=== PATIENT | male | born 1975 | race Caucasian/White ===

== ENCOUNTER 2021-06-05 00:47 | Inpatient (IN) | payer OTHER ==
[2021-06-05] MEDS ORDERED: PROTONIX 40 MG IV IV ONE ×2 (01:22→02:10)
[2021-06-05] MEDS ORDERED: MORPHINE SULFATE 4 MG INJ IV ONE ×2 (01:22→05:42)
[2021-06-05] MEDS ORDERED: Sodium Chloride 0.9% 1000 ML 1,000 ML IV STA ×2 (01:22→01:53)
[2021-06-05] MEDS ORDERED: Zofran 4 MG/2 ML VIAL IV ONE (01:22)
[2021-06-05 01:30] LABS: Hematocrit 53.9 % (42-50); Hemoglobin 17.1 gm/dl (12.5-18.0); Mean Cell Volume 94.4 fl (78-100); Mean Corpuscular Hemoglobin 29.9 pg (26-32); Mean Corpuscular Hgb Concent. 31.7 g/dl (32-36); Mean Platelet Volume 11.1 fl (7.5-11.0); Platelet Count 424 K/mm3 (150-450); Red Blood Count 5.71 M/mm3 (4.1-5.6); Red Cell Distribution Width 12.8 % (11.5-14.0); White Blood Count 16.7 K/mm3 (4.0-10.5)
[2021-06-05 01:48] LABS: ARTERIAL BLOOD GAS pH 6.98 (7.35-7.45)
[2021-06-05 01:49] LABS: ARTERIAL BLD GAS O2 SATURATION 99.5 % (95-100); ARTERIAL BLOOD GAS BASE EXCESS -27.2 (-2.0-2.0); ARTERIAL BLOOD GAS PCO2 11 mmHg (35-45); ARTERIAL BLOOD GAS PO2 131 mmHg (75-100); HCO3- 2.6 (22-28)
[2021-06-05 01:50] LABS: A-aADO2 5; ABG HEMOGLOBIN 17.3; ABG POTASSIUM 5.1 (3.5-5.1); ARTERIAL BLOOD GAS FIO2 21 %; HGB O2 SAT 97.6 g/dF (94-100)
[2021-06-05 01:51] LABS: ABG SITE RIGHT BRACHIAL; CARBOXYHEMOGLOBIN 0.9 % THgb (0.0-6.9)
[2021-06-05] MEDS ORDERED: Sodium Bicarbonate 50 MEQ/50 ML VIAL IV STA (01:53)
--- NOTE | 2021-06-05 01:58 | ERPHSYRPT ---
- History of Present Illness Time Seen by Provider: 06/05/21 00:49 Historian: patient Exam Limitations: no limitations Physician History: 46 years old male with history of diabetes mellitus poorly controlled recently started on Victoza has not taken anything for almost a week presented in the ER with chief complaint of 2 days history of not feeling well with generalized weakness fatigue tiredness, malaise and nausea and since yesterday having multiple episodes of nonprojectile, nonbilious vomiting with no emesis. He is not able to hold much down drinking a lot of water to keep himself well- hydrated. Because of repeated vomiting having pain in the left flank area. Decreased urine output and dark-colored urine reported. No fever or chills reported. Did not have full effect does have history of DKA in the past. Timing/Duration: day(s) (2), constant, gradual onset, worse Activities at Onset: rest Quality: aching Abdominal Pain Onset Location: epigastric, periumbilical, flank Pain Radiation: no radiation Severity of Pain-Max: moderate Severity of Pain-Current: moderate Modifying Factors: Worsens With: vomiting Associated Symptoms: back, heartburn, nausea, vomiting, weakness, No diarrhea Previous symptoms: no prior history Allergies/Adverse Reactions: No Known Drug Allergies Allergy (Unverified 06/05/21 01:23) - Review of Systems Constitutional: Fatigue, Weakness Eyes: No Symptoms Ears, Nose, & Throat: No Symptoms Respiratory: Dyspnea Cardiac: No Symptoms Abdominal/Gastrointestinal: Abdominal Pain, Nausea, Vomiting Genitourinary Symptoms: No Symptoms Musculoskeletal: Back Pain, Myalgias Skin: No Symptoms Neurological: No Symptoms Psychological: Anxiety Endocrine: No Symptoms Hematologic/Lymphatic: No Symptoms Immunological/Allergic: No Symptoms - Nursing Vital Signs Nursing Vital Signs: Initial Vital Signs Temperature 97.7 F 06/05/21 01:24 Pulse Rate 105 H 06/05/21 01:24 Respiratory Rate 24 06/05/21 01:24 Blood Pressure 123/108 06/05/21 01:24 O2 Sat by Pulse Oximetry 97 06/05/21 01:24 Pain Scale Pain Intensity 5 - Physical Exam General Appearance: mild distress, alert, anxiety Eye Exam: PERRL/EOMI, eyes nml inspection Ears, Nose, Throat Exam: TMs normal, pharyngeal erythema Neck Exam: normal inspection, supple, full range of motion Respiratory Exam: normal breath sounds, lungs clear Cardiovascular Exam: normal heart sounds, tachycardia Gastrointestinal/Abdomen Exam: soft, tenderness (Decreased upper abdomen/flank especially right), guarding, No normal bowel sounds Back Exam: normal inspection, normal range of motion Extremity Exam: normal inspection, normal range of motion, pelvis stable Neurologic Exam: alert, oriented x 3, cooperative Skin Exam: normal color SpO2 Interpretation: normal SpO2: 98 O2 Delivery: Room Air - Course EKG Interpreted by Me: RATE ([id number]), Sinus Tach, NORMAL AXIS, NORMAL INTERVALS, NORMAL QRS Ordered Tests: Medication Summary Discontinued Medications Generic Name Dose Route Start Last Admin Trade Name Freq PRN Reason Stop Dose Admin Acetaminophen 650 mg 06/05/21 06:13 06/07/21 00:17 Tylenol 325 Mg PO 07/05/21 06:12 650 mg Q4H PRN PRN Administration PAIN AND/OR FEVER Hydromorphone HCl 1 mg 06/05/21 08:29 06/05/21 20:08 Hydromorphone 1 Mg/Ml Injection IV 06/10/21 08:28 1 mg Q4H PRN PRN Administration PAIN Sodium Chloride 1,000 mls @ 999 mls/hr 06/05/21 01:22 06/05/21 05:01 Sodium Chloride 0.9% 1000 Ml IV 06/05/21 02:22 Infused .Q1H1M STA Infusion Sodium Chloride 1,000 mls @ 999 mls/hr 06/05/21 01:53 06/05/21 05:00 Sodium Chloride 0.9% 1000 Ml IV 06/05/21 02:53 Infused .Q1H1M STA Infusion Sodium Chloride Confirm 06/05/21 02:10 Sodium Chloride 0.9% 1000 Ml Administered 06/05/21 02:11 Dose 2,000 mls @ ud .ROUTE .STK-MED ONE Insulin Human Regular 100 unit 100 mls @ 9.94 mls/hr 06/05/21 02:47 06/05/21 04:15 / Sodium Chloride IV 07/05/21 02:46 0.07 unit/kg/hr .Q10H4M PRN 7 mls/hr DKA/HYPERGLYCEMIA Administration Protocol 0.1 UNIT/KG/HR Piperacillin Sod/Tazobactam 100 mls @ 200 mls/hr 06/05/21 03:06 06/05/21 03: 37 Sod 3.375 gm/ Sodium Chloride IV 06/05/21 03:35 200 mls/hr STAT ONE Administration Sodium Chloride Confirm 06/05/21 03:33 Sodium Chloride 100ml Mini-Bag Plus Administered 06/05/21 03:34 Dose 100 mls @ ud IV .STK-MED ONE Sodium Chloride Confirm 06/05/21 04:08 Sodium Chloride 0.9% 100 Ml Bag Administered 06/05/21 04:09 Dose 100 mls @ ud .ROUTE .STK-MED ONE Sodium Chloride Confirm 06/05/21 06:13 Sodium Chloride 0.9% 1000 Ml Administered 06/05/21 06:14 Dose 1,000 mls @ ud .ROUTE .STK-MED ONE Piperacillin Sod/Tazobactam 100 mls @ 200 mls/hr 06/05/21 12:00 06/07/21 06:09 Sod 3.375 gm/ Sodium Chloride IV 06/09/21 11:59 200 mls/hr Q6HT MANISHA Administration Insulin Human Regular 100 unit 100 mls @ 9.94 mls/hr 06/05/21 12:30 06/06/21 19:35 / Sodium Chloride IV 07/05/21 02:46 Not Given .Q10H4M MANISHA Protocol 0.1 UNIT/KG/HR Sodium Chloride 1,000 mls @ 150 mls/hr 06/05/21 06:45 06/05/21 07:01 Sodium Chloride 0.9% 1000 Ml IV 07/05/21 06:44 150 mls/hr .Q6H40M MANISHA Administration Sodium Chloride 1,000 mls @ 999 mls/hr 06/05/21 08:30 06/06/21 19:49 Sodium Chloride 0.9% 1000 Ml IV 07/05/21 08:29 Not Given .Q1H1M MANISHA Dextrose 1,000 mls @ 150 mls/hr 06/05/21 12:30 06/06/21 00:18 Dextrose 5%/Water Iv Soln. 1000 Ml IV 07/05/21 12:29 150 mls/hr .Q6H40M MANISHA Administration Potassium Chloride 20 meq in 100 mls @ 50 mls/hr 06/06/21 06:00 06/06/21 08:57 Potassium Chloride 20 Meq In Water 100ml IV 06/06/21 09:59 50 mls/hr Q2H MANISHA Administration Sodium Chloride 1,000 mls @ 100 mls/hr 06/06/21 06:00 06/06/21 06:06 Sodium Chloride 0.9% 1000 Ml IV 07/06/21 05:59 150 mls/hr .Q10H MANISHA Administration Potassium Chloride/Sodium Chloride 1,000 mls @ 100 mls/hr 06/06/21 10:00 06/07/21 06:07 Sodium Chloride 0.9% W/ 20 Meq Kcl/Liter IV 07/06/21 09:59 100 mls/hr .Q10H MANISHA Administration Insulin Glargine 30 unit 06/06/21 10:00 06/07/21 09:27 Lantus Insulin SQ 07/06/21 09:59 30 unit QAM MANISHA Administration Insulin Human Lispro 10 unit 06/06/21 11:30 06/07/21 08:07 Humalog SQ 07/06/21 11:29 10 unit AC MANISHA Administration Insulin Human Lispro 0 unit 06/06/21 09:57 06/07/21 08:07 Humalog SQ 07/06/21 09:56 3 unit UD PRN Administration HYPERGLYCEMIA Insulin Human Regular Confirm 06/05/21 04:08 Humulin R Administered 06/05/21 04:09 Dose 105 unit .ROUTE .STK-MED ONE Insulin Human Regular 5 unit 06/05/21 04:17 06/05/21 04:18 Humulin R IV 06/05/21 04:18 5 unit STAT ONE Administration Morphine Sulfate 4 mg 06/05/21 01:22 06/05/21 02:13 Morphine Sulfate 4 Mg Inj IV 06/05/21 01:23 4 mg STAT ONE Administration Morphine Sulfate Confirm 06/05/21 02:10 Morphine Sulfate 4 Mg Inj Administered 06/05/21 02:11 Dose 4 mg .ROUTE .STK-MED ONE Morphine Sulfate Confirm 06/05/21 04:23 Morphine Sulfate 2 Mg Inj Administered 06/05/21 04:24 Dose 2 mg .ROUTE .STK-MED ONE Morphine Sulfate 1 mg 06/05/21 04:39 06/05/21 05:45 Morphine Sulfate 2 Mg Inj IV 06/05/21 04:40 Not Given STAT ONE Morphine Sulfate 1 mg 06/05/21 05:42 06/05/21 05:45 Morphine Sulfate 4 Mg Inj IV 06/05/21 05:43 Not Given STAT ONE Morphine Sulfate 2 mg 06/05/21 05:45 06/05/21 04:25 Morphine Sulfate 2 Mg Inj IV 06/05/21 05:46 2 mg STAT ONE Administration Morphine Sulfate 2 mg 06/05/21 06:13 Morphine Sulfate 2 Mg Inj IV 06/10/21 06:12 Q4H PRN PRN PAIN Ondansetron HCl 4 mg 06/05/21 01:22 06/05/21 02:12 Zofran 4 Mg/2 Ml Vial IV 06/05/21 01:23 4 mg STAT ONE Administration Ondansetron HCl Confirm 06/05/21 02:10 Zofran 4 Mg/2 Ml Vial Administered 06/05/21 02:11 Dose 4 mg .ROUTE .STK-MED ONE Ondansetron HCl 4 mg 06/05/21 06:13 Zofran 4 Mg/2 Ml Vial IV 07/05/21 06:12 Q6H PRN PRN NAUSEA/VOMITING Pantoprazole Sodium 40 mg 06/05/21 01:22 06/05/21 02:12 Protonix 40 Mg Iv IV 06/05/21 01:23 40 mg STAT ONE Administration Pantoprazole Sodium Confirm 06/05/21 02:10 Protonix 40 Mg Iv Administered 06/05/21 02:11 Dose 40 mg IV .STK-MED ONE Pantoprazole Sodium 40 mg 06/05/21 22:00 06/06/21 21:53 Protonix 40 Mg Iv IV 07/05/21 21:59 40 mg Q24H22 MANISHA Administration Piperacillin Sod/Tazobactam Sod Confirm 06/05/21 03:33 Zosyn 3.375 Gm Vial Administered 06/05/21 03:34 Dose 3.375 gm IV .STK-MED ONE Potassium Bicarbonate 50 meq 06/06/21 05:57 06/06/21 06:06 K-Lyte 25 Meq PO 06/06/21 05:58 50 meq STAT ONE Administration Sodium Bicarbonate 50 meq 06/05/21 01:53 06/05/21 02:15 Sodium Bicarbonate 50 Meq/50 Ml Vial IV 06/05/21 01:54 50 meq ONCE STA Administration Sodium Bicarbonate Confirm 06/05/21 02:10 Sodium Bicarbonate 50 Meq/50 Ml Abboject Administered 06/05/21 02:11 Dose 50 meq IV .STK-[employer] ONE Sodium Bicarbonate Confirm 06/05/21 02:14 Sodium Bicarbonate 50 Meq/50 Ml Vial Administered 06/05/21 02:15 Dose 50 meq .ROUTE .STK-MED ONE Lab/Rad Data: Laboratory Result Diagrams 06/05/21 01:26 06/05/21 01:26 Laboratory Results 06/05/21 06/05/21 06/05/21 Range/Units 05:49 05:00 04:24 WBC (4.0-10.5) K/mm3 RBC (4.1-5.6) M/mm3 Hgb (12.5-18.0) gm/dl Hct (42-50) % MCV (78-100) fl MCH (26-32) pg MCHC (32-36) g/dl RDW (11.5-14.0) % Plt Count (150-450) K/mm3 MPV (7.5-11.0) fl Segmented Neutrophils (36.-66.) % Band Neutrophils (0.0-2.0) % Lymphocytes (Manual) (24-44) % Monocytes (Manual) (0.0-12.0) % Platelet Estimate (NORMAL) RBC Morphology Puncture Site pCO2 (35-45) mmHg pO2 (75-100) mmHg Base Excess (-2.0-2.0) O2 Saturation (94-100) g/dF ABG pH (7.35-7.45) ABG HCO3 (22-28) ABG O2 Sat (Measured) (95-100) % Chip Test A-a Gradient a/A Ratio Hemoglobin Carboxyhemoglobin (0.0-6.9) % THgb Methemoglobin (1.4-1.5) % POC O2 Flow Rate % Sodium (137-145) mmol/L Potassium (3.5-5.1) mmol/L Chloride (98-107) mmol/L Carbon Dioxide (22-30) mmol/L BUN (9-20) mg/dL Creatinine (0.66-1.25) mg/dL Estimated GFR ML/MIN Glucose (74-106) mg/dL POC Glucometer (74 to 106) mg/dL Hemoglobin A1c 12.22 H (4.5-6.0) % Lactic Acid (0.4-2.0) Calcium (8.4-10.2) mg/dL Magnesium (1.6-2.3) mg/dL Total Bilirubin (0.2-1.3) mg/dL AST (17-59) U/L ALT (0-50) U/L Alkaline Phosphatase (38-126) U/L Troponin I (0.000-0.034) ng/mL NT-Pro-B Natriuret Pep 43.4 (0-450) pg/mL Serum Total Protein (6.3-8.2) g/dL Albumin (3.5-5.0) g/dL Amylase (30-110) U/L Lipase (23-300) U/L Urine Color (YELLOW) Urine Appearance (CLEAR) Urine pH (5-6) Ur Specific [place] (1.005-1.025) Urine Protein (Negative) Urine Ketones (NEGATIVE) Urine Blood (0-5) Barry/ul Urine Nitrite (NEGATIVE) Urine Bilirubin (NEGATIVE) Urine Urobilinogen (0-1) mg/dL Ur Leukocyte Esterase (NEGATIVE) Urine WBC (Auto) (0-5) /HPF Urine RBC (Auto) (0-2) /HPF U Epithel Cells (Auto) (FEW) /HPF Urine Bacteria (Auto) (NEGATIVE) /HPF Urine Mucus (Auto) (NEGATIVE) /HPF Urine Culture Reflexed (NO) Urine Glucose (NEGATIVE) mg/dL SARS-CoV-2 (PCR) NEGATIVE (NEGATIVE) 06/05/21 06/05/21 06/05/21 Range/Units 04:15 03:47 03:42 WBC (4.0-10.5) K/mm3 RBC (4.1-5.6) M/mm3 Hgb (12.5-18.0) gm/dl Hct (42-50) % MCV (78-100) fl MCH (26-32) pg MCHC (32-36) g/dl RDW (11.5-14.0) % Plt Count (150-450) K/mm3 MPV (7.5-11.0) fl Segmented Neutrophils (36.-66.) % Band Neutrophils (0.0-2.0) % Lymphocytes (Manual) (24-44) % Monocytes (Manual) (0.0-12.0) % Platelet Estimate (NORMAL) RBC Morphology Puncture Site pCO2 (35-45) mmHg pO2 (75-100) mmHg Base Excess (-2.0-2.0) O2 Saturation (94-100) g/dF ABG pH (7.35-7.45) ABG HCO3 (22-28) ABG O2 Sat (Measured) (95-100) % Chip Test A-a Gradient a/A Ratio Hemoglobin Carboxyhemoglobin (0.0-6.9) % THgb Methemoglobin (1.4-1.5) % POC O2 Flow Rate % Sodium (137-145) mmol/L Potassium (3.5-5.1) mmol/L Chloride (98-107) mmol/L Carbon Dioxide (22-30) mmol/L BUN (9-20) mg/dL Creatinine (0.66-1.25) mg/dL Estimated GFR ML/MIN Glucose (74-106) mg/dL POC Glucometer 439 H (74 to 106) mg/dL Hemoglobin A1c (4.5-6.0) % Lactic Acid 3.6 H (0.4-2.0) Calcium (8.4-10.2) mg/dL Magnesium (1.6-2.3) mg/dL Total Bilirubin (0.2-1.3) mg/dL AST (17-59) U/L ALT (0-50) U/L Alkaline Phosphatase (38-126) U/L Troponin I < 0.012 (0.000-0.034) ng/mL NT-Pro-B Natriuret Pep (0-450) pg/mL Serum Total Protein (6.3-8.2) g/dL Albumin (3.5-5.0) g/dL Amylase (30-110) U/L Lipase (23-300) U/L Urine Color (YELLOW) Urine Appearance (CLEAR) Urine pH (5-6) Ur Specific [place] (1.005-1.025) Urine Protein (Negative) Urine Ketones (NEGATIVE) Urine Blood (0-5) Barry/ul Urine Nitrite (NEGATIVE) Urine Bilirubin (NEGATIVE) Urine Urobilinogen (0-1) mg/dL Ur Leukocyte Esterase (NEGATIVE) Urine WBC (Auto) (0-5) /HPF Urine RBC (Auto) (0-2) /HPF U Epithel Cells (Auto) (FEW) /HPF Urine Bacteria (Auto) (NEGATIVE) /HPF Urine Mucus (Auto) (NEGATIVE) /HPF Urine Culture Reflexed (NO) Urine Glucose (NEGATIVE) mg/dL SARS-CoV-2 (PCR) (NEGATIVE) 06/05/21 06/05/21 06/05/21 Range/Units 02:47 02:45 01:40 WBC (4.0-10.5) K/mm3 RBC (4.1-5.6) M/mm3 Hgb (12.5-18.0) gm/dl Hct (42-50) % MCV (78-100) fl MCH (26-32) pg MCHC (32-36) g/dl RDW (11.5-14.0) % Plt Count (150-450) K/mm3 MPV (7.5-11.0) fl Segmented Neutrophils (36.-66.) % Band Neutrophils (0.0-2.0) % Lymphocytes (Manual) (24-44) % Monocytes (Manual) (0.0-12.0) % Platelet Estimate (NORMAL) RBC Morphology Puncture Site RIGHT BRACHIAL pCO2 11 L* (35-45) mmHg pO2 131 H* (75-100) mmHg Base Excess -27.2 L (-2.0-2.0) O2 Saturation 97.6 (94-100) g/dF ABG pH 6.98 L* (7.35-7.45) ABG HCO3 2.6 L* (22-28) ABG O2 Sat (Measured) 99.5 (95-100) % Chip Test NOT APPLICABLE A-a Gradient 5 a/A Ratio 0.96 Hemoglobin 17.3 Carboxyhemoglobin 0.9 (0.0-6.9) % THgb Methemoglobin 1.0 L (1.4-1.5) % POC O2 Flow Rate 21 % Sodium (137-145) mmol/L Potassium 5.1 (3.5-5.1) mmol/L Chloride (98-107) mmol/L Carbon Dioxide (22-30) mmol/L BUN (9-20) mg/dL Creatinine (0.66-1.25) mg/dL Estimated GFR ML/MIN Glucose (74-106) mg/dL POC Glucometer (74 to 106) mg/dL Hemoglobin A1c (4.5-6.0) % Lactic Acid (0.4-2.0) Calcium (8.4-10.2) mg/dL Magnesium 2.4 H (1.6-2.3) mg/dL Total Bilirubin (0.2-1.3) mg/dL AST (17-59) U/L ALT (0-50) U/L Alkaline Phosphatase (38-126) U/L Troponin I (0.000-0.034) ng/mL NT-Pro-B Natriuret Pep (0-450) pg/mL Serum Total Protein (6.3-8.2) g/dL Albumin (3.5-5.0) g/dL Amylase (30-110) U/L Lipase (23-300) U/L Urine Color YELLOW (YELLOW) Urine Appearance CLEAR (CLEAR) Urine pH 5.0 (5-6) Ur Specific [place] 1.021 (1.005-1.025) Urine Protein 100 (Negative) Urine Ketones MODERATE (NEGATIVE) Urine Blood SMALL (0-5) Barry/ul Urine Nitrite NEGATIVE (NEGATIVE) Urine Bilirubin NEGATIVE (NEGATIVE) Urine Urobilinogen NEGATIVE (0-1) mg/dL Ur Leukocyte Esterase NEGATIVE (NEGATIVE) Urine WBC (Auto) NONE (0-5) /HPF Urine RBC (Auto) NONE (0-2) /HPF U Epithel Cells (Auto) NONE (FEW) /HPF Urine Bacteria (Auto) NONE (NEGATIVE) /HPF Urine Mucus (Auto) SLIGHT (NEGATIVE) /HPF Urine Culture Reflexed YES (NO) Urine Glucose >=500 (NEGATIVE) mg/dL SARS-CoV-2 (PCR) (NEGATIVE) 06/05/21 06/05/21 06/05/21 Range/Units 01:40 01:26 01:26 WBC (4.0-10.5) K/mm3 RBC (4.1-5.6) M/mm3 Hgb (12.5-18.0) gm/dl Hct (42-50) % MCV (78-100) fl MCH (26-32) pg MCHC (32-36) g/dl RDW (11.5-14.0) % Plt Count (150-450) K/mm3 MPV (7.5-11.0) fl Segmented Neutrophils (36.-66.) % Band Neutrophils (0.0-2.0) % Lymphocytes (Manual) (24-44) % Monocytes (Manual) (0.0-12.0) % Platelet Estimate (NORMAL) RBC Morphology Puncture Site pCO2 (35-45) mmHg pO2 (75-100) mmHg Base Excess (-2.0-2.0) O2 Saturation (94-100) g/dF ABG pH (7.35-7.45) ABG HCO3 (22-28) ABG O2 Sat (Measured) (95-100) % Chip Test A-a Gradient a/A Ratio Hemoglobin Carboxyhemoglobin (0.0-6.9) % THgb Methemoglobin (1.4-1.5) % POC O2 Flow Rate % Sodium 138 (137-145) mmol/L Potassium 5.6 H (3.5-5.1) mmol/L Chloride 102 (98-107) mmol/L Carbon Dioxide < 5 L* (22-30) mmol/L BUN 21 H (9-20) mg/dL Creatinine 1.45 H (0.66-1.25) mg/dL Estimated GFR 55.4 ML/MIN Glucose 499 H (74-106) mg/dL POC Glucometer (74 to 106) mg/dL Hemoglobin A1c (4.5-6.0) % Lactic Acid 2.5 H (0.4-2.0) Calcium 10.5 H (8.4-10.2) mg/dL Magnesium (1.6-2.3) mg/dL Total Bilirubin 0.50 (0.2-1.3) mg/dL AST 25 (17-59) U/L ALT 20 (0-50) U/L Alkaline Phosphatase 120 (38-126) U/L Troponin I < 0.012 (0.000-0.034) ng/mL NT-Pro-B Natriuret Pep (0-450) pg/mL Serum Total Protein 9.3 H (6.3-8.2) g/dL Albumin 5.4 H (3.5-5.0) g/dL Amylase 54 (30-110) U/L Lipase 248 (23-300) U/L Urine Color (YELLOW) Urine Appearance (CLEAR) Urine pH (5-6) Ur Specific [place] (1.005-1.025) Urine Protein (Negative) Urine Ketones (NEGATIVE) Urine Blood (0-5) Barry/ul Urine Nitrite (NEGATIVE) Urine Bilirubin (NEGATIVE) Urine Urobilinogen (0-1) mg/dL Ur Leukocyte Esterase (NEGATIVE) Urine WBC (Auto) (0-5) /HPF Urine RBC (Auto) (0-2) /HPF U Epithel Cells (Auto) (FEW) /HPF Urine Bacteria (Auto) (NEGATIVE) /HPF Urine Mucus (Auto) (NEGATIVE) /HPF Urine Culture Reflexed (NO) Urine Glucose (NEGATIVE) mg/dL SARS-CoV-2 (PCR) (NEGATIVE) 06/05/21 06/05/21 Range/Units 01:26 01:22 WBC 16.7 H (4.0-10.5) K/mm3 RBC 5.71 H (4.1-5.6) M/mm3 Hgb 17.1 (12.5-18.0) gm/dl Hct 53.9 H (42-50) % MCV 94.4 (78-100) fl MCH 29.9 (26-32) pg MCHC 31.7 L (32-36) g/dl RDW 12.8 (11.5-14.0) % Plt Count 424 (150-450) K/mm3 MPV 11.1 H (7.5-11.0) fl Segmented Neutrophils 82 H (36.-66.) % Band Neutrophils 2 (0.0-2.0) % Lymphocytes (Manual) 12 L (24-44) % Monocytes (Manual) 4 (0.0-12.0) % Platelet Estimate NORMAL (NORMAL) RBC Morphology NORMAL Puncture Site pCO2 (35-45) mmHg pO2 (75-100) mmHg Base Excess (-2.0-2.0) O2 Saturation (94-100) g/dF ABG pH (7.35-7.45) ABG HCO3 (22-28) ABG O2 Sat (Measured) (95-100) % Chip Test A-a Gradient a/A Ratio Hemoglobin Carboxyhemoglobin (0.0-6.9) % THgb Methemoglobin (1.4-1.5) % POC O2 Flow Rate % Sodium (137-145) mmol/L Potassium (3.5-5.1) mmol/L Chloride (98-107) mmol/L Carbon Dioxide (22-30) mmol/L BUN (9-20) mg/dL Creatinine (0.66-1.25) mg/dL Estimated GFR ML/MIN Glucose (74-106) mg/dL POC Glucometer 423 H (74 to 106) mg/dL Hemoglobin A1c (4.5-6.0) % Lactic Acid (0.4-2.0) Calcium (8.4-10.2) mg/dL Magnesium (1.6-2.3) mg/dL Total Bilirubin (0.2-1.3) mg/dL AST (17-59) U/L ALT (0-50) U/L Alkaline Phosphatase (38-126) U/L Troponin I (0.000-0.034) ng/mL NT-Pro-B Natriuret Pep (0-450) pg/mL Serum Total Protein (6.3-8.2) g/dL Albumin (3.5-5.0) g/dL Amylase (30-110) U/L Lipase (23-300) U/L Urine Color (YELLOW) Urine Appearance (CLEAR) Urine pH (5-6) Ur Specific [place] (1.005-1.025) Urine Protein (Negative) Urine Ketones (NEGATIVE) Urine Blood (0-5) Barry/ul Urine Nitrite (NEGATIVE) Urine Bilirubin (NEGATIVE) Urine Urobilinogen (0-1) mg/dL Ur Leukocyte Esterase (NEGATIVE) Urine WBC (Auto) (0-5) /HPF Urine RBC (Auto) (0-2) /HPF U Epithel Cells (Auto) (FEW) /HPF Urine Bacteria (Auto) (NEGATIVE) /HPF Urine Mucus (Auto) (NEGATIVE) /HPF Urine Culture Reflexed (NO) Urine Glucose (NEGATIVE) mg/dL SARS-CoV-2 (PCR) (NEGATIVE) - Progress Progress: improved, re-examined Progress Note: 06/05/21 03:02 46 years old is evaluated in the ER for not feeling well with vomiting and abdominal pain. Patient is tachypneic and tachycardic. Initial blood sugar in 400s with Anion gap of 31 and bicarb less than 5. ABG showed pH of 6.9 with low bicarb and given an ampule of bicarb IV along with fluid boluses. Patient is in DKA with some KERI as well. He will be started on insulin drip and would be admitted to ICU. Discussed with : Bethany Will see patient in: hospital (full admit) Counseled pt/family regarding: lab results, diagnosis, rad results - Departure Departure Disposition: In-patient Admission Clinical Impression: KERI (acute kidney injury) DKA (diabetic ketoacidosis) Qualifiers: Diabetes mellitus type: type 2 Diabetes mellitus complication detail: without coma Qualified Code(s): E11.10 - Type 2 diabetes mellitus with ketoacidosis without coma Condition: Good Critical Care Time: Yes Critical Care Time(excluding separately billable procedures): Critical 30-74 mins
[2021-06-05] MEDS ORDERED: MORPHINE SULFATE 4 MG INJ ONE (02:10)
[2021-06-05] MEDS ORDERED: Sodium Chloride 0.9% 1000 ML 2,000 ML ONE (02:10)
[2021-06-05] MEDS ORDERED: Zofran 4 MG/2 ML VIAL ONE (02:10)
[2021-06-05] MEDS ORDERED: SODIUM BICARBONATE 50 MEQ/50 ML ABBOJECT IV ONE (02:10)
[2021-06-05] MEDS ORDERED: Sodium Bicarbonate 50 MEQ/50 ML VIAL ONE (02:14)
[2021-06-05 02:16] LABS: ALBUMIN 5.4 g/dL (3.5-5.0); ALKALINE PHOSPHATASE 120 U/L (38-126); AMYLASE 54 U/L (30-110); BLOOD UREA NITROGEN 21 mg/dL (9-20); CHLORIDE 102 mmol/L (98-107); Calcium 10.5 mg/dL (8.4-10.2); Creatinine 1 1.45 mg/dL (0.66-1.25); EST GLOMERULAR FILTRATION RATE 55.4 ML/MIN; Glucose 499 mg/dL (74-106); LIPASE 248 U/L (23-300); Potassium 5.6 mmol/L (3.5-5.1); SGOT/AST 25 U/L (17-59); SGPT/ALT 20 U/L (0-50); SODIUM 138 mmol/L (137-145); Total Protein 9.3 g/dL (6.3-8.2)
[2021-06-05 02:18] LABS: Carbon Dioxide < 5 mmol/L (22-30)
[2021-06-05 02:30] LABS: BAND 2 % (0.0-2.0); Lymphocytes 12 % (24-44); Monocyte 4 % (0.0-12.0); Neutrophils 82 % (36.-66.); Total Cells Counted 100
[2021-06-05 02:31] LABS: Platelet Estimate NORMAL (NORMAL)
[2021-06-05] MEDS ORDERED: HUMULIN R 100 UNIT in Sodium Chloride 0.9% 100 ML BAG 100 ML IV PRN (02:47)
[2021-06-05 03:04] LABS: Appearance CLEAR (CLEAR); Bilirubin NEGATIVE (NEGATIVE); Blood SMALL Ery/ul (0-5); Glucose >=500 mg/dL (NEGATIVE); Ketones MODERATE (NEGATIVE); Leukocyte Esterase NEGATIVE (NEGATIVE); Mucus SLIGHT /HPF (NEGATIVE); Nitrite NEGATIVE (NEGATIVE); Protein,Urine Dip 100 (Negative); Specific Gravity 1.021 (1.005-1.025); Urobilinogen NEGATIVE mg/dL (0-1)
[2021-06-05] MEDS ORDERED: Zosyn 3.375 GM Vial 3.375 GM in Sodium Chloride 100ML MINI-BAG PLUS 100 ML IV ONE (03:06)
[2021-06-05] MEDS ORDERED: Sodium Chloride 100ML MINI-BAG PLUS 100 ML IV ONE (03:33)
[2021-06-05] MEDS ORDERED: Zosyn 3.375 GM Vial IV ONE (03:33)
[2021-06-05] MEDS ORDERED: HUMULIN R ONE (04:08)
[2021-06-05] MEDS ORDERED: Sodium Chloride 0.9% 100 ML BAG 100 ML ONE (04:08)
[2021-06-05] MEDS ORDERED: HUMULIN R IV ONE (04:17)
[2021-06-05] MEDS ORDERED: MORPHINE SULFATE 2 MG INJ ONE (04:23)
[2021-06-05] MEDS ORDERED: MORPHINE SULFATE 2 MG INJ IV ONE ×2 (04:39→05:45)
[2021-06-05] MEDS ORDERED: Sodium Chloride 0.9% 1000 ML 1,000 ML ONE (06:13)
[2021-06-05] MEDS ORDERED: MORPHINE SULFATE 2 MG INJ IV PRN (06:13)
[2021-06-05] MEDS ORDERED: Zosyn 3.375 GM Vial 3.375 GM in Sodium Chloride 100ML MINI-BAG PLUS 100 ML IV SCH (06:13)
[2021-06-05] MEDS ORDERED: Zofran 4 MG/2 ML VIAL IV PRN (06:13)
[2021-06-05] MEDS ORDERED: Sodium Chloride 0.9% 1000 ML 1,000 ML IV SCH (06:45)
[2021-06-05 06:54] LABS: ANION GAP 33.6 MEQ/L (5-15); BLOOD UREA NITROGEN 21 mg/dL (9-20); CHLORIDE 109 mmol/L (98-107); Calcium 9.2 mg/dL (8.4-10.2); Creatinine 1 1.28 mg/dL (0.66-1.25); EST GLOMERULAR FILTRATION RATE > 60.0 ML/MIN; Glucose 347 mg/dL (74-106); Potassium 4.4 mmol/L (3.5-5.1); SODIUM 143 mmol/L (137-145)
[2021-06-05] MEDS: HUMULIN R 100 UNIT in Sodium Chloride 0.9% 100 ML BAG 100 ML IV SCH ×2 (07:01→22:03)
[2021-06-05 07:39] LABS: Carbon Dioxide < 5 mmol/L (22-30)
--- NOTE | 2021-06-05 08:33 | PCM.HP ---
History of Present Illness - Chief Complaint Chief Complaint: DKA History of Present Illness: is a 46 year old male who presented to the ER with severe pain in upper stomach radiating to his back, he has profuse nausea and vomiting and high blood sugar. type 2 diabetes diagnosed 5-6 years ago, not following with any physician until recently, started on weekly injection but made him sick. - Review of Systems Constitutional: No Fever, No Chills Respiratory: No Cough, No Short Of Breath Cardiac: No Chest Pain, No Edema, No Syncope Abdominal/Gastrointestinal: Abdominal Pain, Nausea, Vomiting, No Diarrhea Genitourinary Symptoms: No Dysuria Skin: No Rash All Other Systems: Reviewed and Negative Medications & Allergies Home Medications: Home Medication List No Reportable Medications [No Reported Medications] 06/05/21 [History Confirmed 06/05/21] Allergies/Adverse Reactions: Allergies Allergy/AdvReac Type Severity Reaction Status Date / Time No Known Drug Allergies Allergy Unverified 06/05/21 01:23 - Past Medical History Past Medical History: Yes Neurological History: No Pertinent History ENT History: No Pertinent History Cardiac History: No Pertinent History Respiratory History: No Pertinent History Endocrine Medical History: Diabetes Type I Musculoskelatal History: No Pertinent History GI Medical History: No Pertinent History History: No Pertinent History Pyscho-Social History: No Pertinent History Male Reproductive Disorders: No Pertinent History - Past Surgical History Past Surgical History: No Neuro Surgical History: No Pertinent History Cardiac History: No Pertinent History Respiratory Surgery: No Pertinent History GI Surgical History: No Pertinent History Genitourinary Surgical Hx: No Pertinent History Musculskeletal Surgical Hx: No Pertinent History Male Surgical History: No Pertinent History - Social History Smoking Status: Former smoker How long have you smoked: 1 Exposure to second hand smoke: No Alcohol: None Drug Use: none - Physical Exam Vital Signs: Vital Signs - 24 hr Temp Pulse Resp BP Pulse Ox 06/05/21 08:00 97.8 F 127 H 22 135/64 98 06/05/21 07:30 129 H 34 H 101/79 94 L 06/05/21 07:00 135 H 24 132/79 97 06/05/21 06:45 128 H 20 118/95 100 06/05/21 06:26 97.8 F 128 H 28 H 138/83 99 06/05/21 06:00 126 H 26 H 99 06/05/21 05:00 120 H 135/75 99 06/05/21 04:00 100 H 20 124/89 98 06/05/21 03:44 98 06/05/21 03:00 94 H 22 123/85 98 06/05/21 02:07 97.7 F 105 H 123/108 98 06/05/21 01:24 97.7 F 105 H 24 123/108 97 General Appearance: mild distress Neurologic Exam: alert, cooperative Respiratory Exam: normal breath sounds, lungs clear, No respiratory distress Cardiovascular Exam: tachycardia Gastrointestinal/Abdomen Exam: soft, normal bowel sounds, No tenderness, No mass Extremity Exam: normal inspection, normal range of motion, pelvis stable Results - Labs Lab/Micro Results: Lab Results-Last 24 Hours 06/05/21 06/05/21 06/05/21 Range/Units 01:22 01:26 01:26 WBC 16.7 H (4.0-10.5) K/mm3 RBC 5.71 H (4.1-5.6) M/mm3 Hgb 17.1 (12.5-18.0) gm/dl Hct 53.9 H (42-50) % MCV 94.4 (78-100) fl MCH 29.9 (26-32) pg MCHC 31.7 L (32-36) g/dl RDW 12.8 (11.5-14.0) % Plt Count 424 (150-450) K/mm3 MPV 11.1 H (7.5-11.0) fl Segmented Neutrophils 82 H (36.-66.) % Band Neutrophils 2 (0.0-2.0) % Lymphocytes (Manual) 12 L (24-44) % Monocytes (Manual) 4 (0.0-12.0) % Platelet Estimate NORMAL (NORMAL) RBC Morphology NORMAL Puncture Site pCO2 (35-45) mmHg pO2 (75-100) mmHg Base Excess (-2.0-2.0) O2 Saturation (94-100) g/dF ABG pH (7.35-7.45) ABG HCO3 (22-28) ABG O2 Sat (Measured) (95-100) % Chip Test A-a Gradient a/A Ratio Hemoglobin Carboxyhemoglobin (0.0-6.9) % THgb Methemoglobin (1.4-1.5) % POC O2 Flow Rate % Sodium 138 (137-145) mmol/L Potassium 5.6 H (3.5-5.1) mmol/L Chloride 102 (98-107) mmol/L Carbon Dioxide < 5 L* (22-30) mmol/L Anion Gap (5-15) MEQ/L BUN 21 H (9-20) mg/dL Creatinine 1.45 H (0.66-1.25) mg/dL Estimated GFR 55.4 ML/MIN Glucose 499 H (74-106) mg/dL POC Glucometer 423 H (74 to 106) mg/dL Lactic Acid (0.4-2.0) Calcium 10.5 H (8.4-10.2) mg/dL Magnesium (1.6-2.3) mg/dL Total Bilirubin 0.50 (0.2-1.3) mg/dL AST 25 (17-59) U/L ALT 20 (0-50) U/L Alkaline Phosphatase 120 (38-126) U/L Troponin I (0.000-0.034) ng/mL NT-Pro-B Natriuret Pep (0-450) pg/mL Serum Total Protein 9.3 H (6.3-8.2) g/dL Albumin 5.4 H (3.5-5.0) g/dL Amylase 54 (30-110) U/L Lipase 248 (23-300) U/L Urine Color (YELLOW) Urine Appearance (CLEAR) Urine pH (5-6) Ur Specific [place] (1.005-1.025) Urine Protein (Negative) Urine Ketones (NEGATIVE) Urine Blood (0-5) Barry/ul Urine Nitrite (NEGATIVE) Urine Bilirubin (NEGATIVE) Urine Urobilinogen (0-1) mg/dL Ur Leukocyte Esterase (NEGATIVE) Urine WBC (Auto) (0-5) /HPF Urine RBC (Auto) (0-2) /HPF U Epithel Cells (Auto) (FEW) /HPF Urine Bacteria (Auto) (NEGATIVE) /HPF Urine Mucus (Auto) (NEGATIVE) /HPF Urine Culture Reflexed (NO) Urine Glucose (NEGATIVE) mg/dL SARS-CoV-2 (PCR) (NEGATIVE) 06/05/21 06/05/21 06/05/21 Range/Units 01:26 01:40 01:40 WBC (4.0-10.5) K/mm3 RBC (4.1-5.6) M/mm3 Hgb (12.5-18.0) gm/dl Hct (42-50) % MCV (78-100) fl MCH (26-32) pg MCHC (32-36) g/dl RDW (11.5-14.0) % Plt Count (150-450) K/mm3 MPV (7.5-11.0) fl Segmented Neutrophils (36.-66.) % Band Neutrophils (0.0-2.0) % Lymphocytes (Manual) (24-44) % Monocytes (Manual) (0.0-12.0) % Platelet Estimate (NORMAL) RBC Morphology Puncture Site RIGHT BRACHIAL pCO2 11 L* (35-45) mmHg pO2 131 H* (75-100) mmHg Base Excess -27.2 L (-2.0-2.0) O2 Saturation 97.6 (94-100) g/dF ABG pH 6.98 L* (7.35-7.45) ABG HCO3 2.6 L* (22-28) ABG O2 Sat (Measured) 99.5 (95-100) % Chip Test NOT APPLICABLE A-a Gradient 5 a/A Ratio 0.96 Hemoglobin 17.3 Carboxyhemoglobin 0.9 (0.0-6.9) % THgb Methemoglobin 1.0 L (1.4-1.5) % POC O2 Flow Rate 21 % Sodium (137-145) mmol/L Potassium 5.1 (3.5-5.1) mmol/L Chloride (98-107) mmol/L Carbon Dioxide (22-30) mmol/L Anion Gap (5-15) MEQ/L BUN (9-20) mg/dL Creatinine (0.66-1.25) mg/dL Estimated GFR ML/MIN Glucose (74-106) mg/dL POC Glucometer (74 to 106) mg/dL Lactic Acid 2.5 H (0.4-2.0) Calcium (8.4-10.2) mg/dL Magnesium (1.6-2.3) mg/dL Total Bilirubin (0.2-1.3) mg/dL AST (17-59) U/L ALT (0-50) U/L Alkaline Phosphatase (38-126) U/L Troponin I < 0.012 (0.000-0.034) ng/mL NT-Pro-B Natriuret Pep (0-450) pg/mL Serum Total Protein (6.3-8.2) g/dL Albumin (3.5-5.0) g/dL Amylase (30-110) U/L Lipase (23-300) U/L Urine Color (YELLOW) Urine Appearance (CLEAR) Urine pH (5-6) Ur Specific [place] (1.005-1.025) Urine Protein (Negative) Urine Ketones (NEGATIVE) Urine Blood (0-5) Barry/ul Urine Nitrite (NEGATIVE) Urine Bilirubin (NEGATIVE) Urine Urobilinogen (0-1) mg/dL Ur Leukocyte Esterase (NEGATIVE) Urine WBC (Auto) (0-5) /HPF Urine RBC (Auto) (0-2) /HPF U Epithel Cells (Auto) (FEW) /HPF Urine Bacteria (Auto) (NEGATIVE) /HPF Urine Mucus (Auto) (NEGATIVE) /HPF Urine Culture Reflexed (NO) Urine Glucose (NEGATIVE) mg/dL SARS-CoV-2 (PCR) (NEGATIVE) 06/05/21 06/05/21 06/05/21 Range/Units 02:45 02:47 03:42 WBC (4.0-10.5) K/mm3 RBC (4.1-5.6) M/mm3 Hgb (12.5-18.0) gm/dl Hct (42-50) % MCV (78-100) fl MCH (26-32) pg MCHC (32-36) g/dl RDW (11.5-14.0) % Plt Count (150-450) K/mm3 MPV (7.5-11.0) fl Segmented Neutrophils (36.-66.) % Band Neutrophils (0.0-2.0) % Lymphocytes (Manual) (24-44) % Monocytes (Manual) (0.0-12.0) % Platelet Estimate (NORMAL) RBC Morphology Puncture Site pCO2 (35-45) mmHg pO2 (75-100) mmHg Base Excess (-2.0-2.0) O2 Saturation (94-100) g/dF ABG pH (7.35-7.45) ABG HCO3 (22-28) ABG O2 Sat (Measured) (95-100) % Chip Test A-a Gradient a/A Ratio Hemoglobin Carboxyhemoglobin (0.0-6.9) % THgb Methemoglobin (1.4-1.5) % POC O2 Flow Rate % Sodium (137-145) mmol/L Potassium (3.5-5.1) mmol/L Chloride (98-107) mmol/L Carbon Dioxide (22-30) mmol/L Anion Gap (5-15) MEQ/L BUN (9-20) mg/dL Creatinine (0.66-1.25) mg/dL Estimated GFR ML/MIN Glucose (74-106) mg/dL POC Glucometer 439 H (74 to 106) mg/dL Lactic Acid (0.4-2.0) Calcium (8.4-10.2) mg/dL Magnesium 2.4 H (1.6-2.3) mg/dL Total Bilirubin (0.2-1.3) mg/dL AST (17-59) U/L ALT (0-50) U/L Alkaline Phosphatase (38-126) U/L Troponin I (0.000-0.034) ng/mL NT-Pro-B Natriuret Pep (0-450) pg/mL Serum Total Protein (6.3-8.2) g/dL Albumin (3.5-5.0) g/dL Amylase (30-110) U/L Lipase (23-300) U/L Urine Color YELLOW (YELLOW) Urine Appearance CLEAR (CLEAR) Urine pH 5.0 (5-6) Ur Specific [place] 1.021 (1.005-1.025) Urine Protein 100 (Negative) Urine Ketones MODERATE (NEGATIVE) Urine Blood SMALL (0-5) Barry/ul Urine Nitrite NEGATIVE (NEGATIVE) Urine Bilirubin NEGATIVE (NEGATIVE) Urine Urobilinogen NEGATIVE (0-1) mg/dL Ur Leukocyte Esterase NEGATIVE (NEGATIVE) Urine WBC (Auto) NONE (0-5) /HPF Urine RBC (Auto) NONE (0-2) /HPF U Epithel Cells (Auto) NONE (FEW) /HPF Urine Bacteria (Auto) NONE (NEGATIVE) /HPF Urine Mucus (Auto) SLIGHT (NEGATIVE) /HPF Urine Culture Reflexed YES (NO) Urine Glucose >=500 (NEGATIVE) mg/dL SARS-CoV-2 (PCR) (NEGATIVE) 06/05/21 06/05/21 06/05/21 Range/Units 03:47 04:15 04:24 WBC (4.0-10.5) K/mm3 RBC (4.1-5.6) M/mm3 Hgb (12.5-18.0) gm/dl Hct (42-50) % MCV (78-100) fl MCH (26-32) pg MCHC (32-36) g/dl RDW (11.5-14.0) % Plt Count (150-450) K/mm3 MPV (7.5-11.0) fl Segmented Neutrophils (36.-66.) % Band Neutrophils (0.0-2.0) % Lymphocytes (Manual) (24-44) % Monocytes (Manual) (0.0-12.0) % Platelet Estimate (NORMAL) RBC Morphology Puncture Site pCO2 (35-45) mmHg pO2 (75-100) mmHg Base Excess (-2.0-2.0) O2 Saturation (94-100) g/dF ABG pH (7.35-7.45) ABG HCO3 (22-28) ABG O2 Sat (Measured) (95-100) % Chip Test A-a Gradient a/A Ratio Hemoglobin Carboxyhemoglobin (0.0-6.9) % THgb Methemoglobin (1.4-1.5) % POC O2 Flow Rate % Sodium (137-145) mmol/L Potassium (3.5-5.1) mmol/L Chloride (98-107) mmol/L Carbon Dioxide (22-30) mmol/L Anion Gap (5-15) MEQ/L BUN (9-20) mg/dL Creatinine (0.66-1.25) mg/dL Estimated GFR ML/MIN Glucose (74-106) mg/dL POC Glucometer (74 to 106) mg/dL Lactic Acid 3.6 H (0.4-2.0) Calcium (8.4-10.2) mg/dL Magnesium (1.6-2.3) mg/dL Total Bilirubin (0.2-1.3) mg/dL AST (17-59) U/L ALT (0-50) U/L Alkaline Phosphatase (38-126) U/L Troponin I < 0.012 (0.000-0.034) ng/mL NT-Pro-B Natriuret Pep (0-450) pg/mL Serum Total Protein (6.3-8.2) g/dL Albumin (3.5-5.0) g/dL Amylase (30-110) U/L Lipase (23-300) U/L Urine Color (YELLOW) Urine Appearance (CLEAR) Urine pH (5-6) Ur Specific [place] (1.005-1.025) Urine Protein (Negative) Urine Ketones (NEGATIVE) Urine Blood (0-5) Barry/ul Urine Nitrite (NEGATIVE) Urine Bilirubin (NEGATIVE) Urine Urobilinogen (0-1) mg/dL Ur Leukocyte Esterase (NEGATIVE) Urine WBC (Auto) (0-5) /HPF Urine RBC (Auto) (0-2) /HPF U Epithel Cells (Auto) (FEW) /HPF Urine Bacteria (Auto) (NEGATIVE) /HPF Urine Mucus (Auto) (NEGATIVE) /HPF Urine Culture Reflexed (NO) Urine Glucose (NEGATIVE) mg/dL SARS-CoV-2 (PCR) NEGATIVE (NEGATIVE) 06/05/21 06/05/21 06/05/21 Range/Units 05:49 06:40 06:40 WBC (4.0-10.5) K/mm3 RBC (4.1-5.6) M/mm3 Hgb (12.5-18.0) gm/dl Hct (42-50) % MCV (78-100) fl MCH (26-32) pg MCHC (32-36) g/dl RDW (11.5-14.0) % Plt Count (150-450) K/mm3 MPV (7.5-11.0) fl Segmented Neutrophils (36.-66.) % Band Neutrophils (0.0-2.0) % Lymphocytes (Manual) (24-44) % Monocytes (Manual) (0.0-12.0) % Platelet Estimate (NORMAL) RBC Morphology Puncture Site pCO2 (35-45) mmHg pO2 (75-100) mmHg Base Excess (-2.0-2.0) O2 Saturation (94-100) g/dF ABG pH (7.35-7.45) ABG HCO3 (22-28) ABG O2 Sat (Measured) (95-100) % Chip Test A-a Gradient a/A Ratio Hemoglobin Carboxyhemoglobin (0.0-6.9) % THgb Methemoglobin (1.4-1.5) % POC O2 Flow Rate % Sodium 143 (137-145) mmol/L Potassium 4.4 D (3.5-5.1) mmol/L Chloride 109 H (98-107) mmol/L Carbon Dioxide < 5 L* (22-30) mmol/L Anion Gap 33.6 H (5-15) MEQ/L BUN 21 H (9-20) mg/dL Creatinine 1.28 H (0.66-1.25) mg/dL Estimated GFR > 60.0 ML/MIN Glucose 347 H (74-106) mg/dL POC Glucometer (74 to 106) mg/dL Lactic Acid (0.4-2.0) Calcium 9.2 (8.4-10.2) mg/dL Magnesium (1.6-2.3) mg/dL Total Bilirubin (0.2-1.3) mg/dL AST (17-59) U/L ALT (0-50) U/L Alkaline Phosphatase (38-126) U/L Troponin I < 0.012 (0.000-0.034) ng/mL NT-Pro-B Natriuret Pep 43.4 (0-450) pg/mL Serum Total Protein (6.3-8.2) g/dL Albumin (3.5-5.0) g/dL Amylase (30-110) U/L Lipase (23-300) U/L Urine Color (YELLOW) Urine Appearance (CLEAR) Urine pH (5-6) Ur Specific [place] (1.005-1.025) Urine Protein (Negative) Urine Ketones (NEGATIVE) Urine Blood (0-5) Barry/ul Urine Nitrite (NEGATIVE) Urine Bilirubin (NEGATIVE) Urine Urobilinogen (0-1) mg/dL Ur Leukocyte Esterase (NEGATIVE) Urine WBC (Auto) (0-5) /HPF Urine RBC (Auto) (0-2) /HPF U Epithel Cells (Auto) (FEW) /HPF Urine Bacteria (Auto) (NEGATIVE) /HPF Urine Mucus (Auto) (NEGATIVE) /HPF Urine Culture Reflexed (NO) Urine Glucose (NEGATIVE) mg/dL SARS-CoV-2 (PCR) (NEGATIVE) 06/05/21 06/05/21 Range/Units 06:58 07:45 WBC (4.0-10.5) K/mm3 RBC (4.1-5.6) M/mm3 Hgb (12.5-18.0) gm/dl Hct (42-50) % MCV (78-100) fl MCH (26-32) pg MCHC (32-36) g/dl RDW (11.5-14.0) % Plt Count (150-450) K/mm3 MPV (7.5-11.0) fl Segmented Neutrophils (36.-66.) % Band Neutrophils (0.0-2.0) % Lymphocytes (Manual) (24-44) % Monocytes (Manual) (0.0-12.0) % Platelet Estimate (NORMAL) RBC Morphology Puncture Site pCO2 (35-45) mmHg pO2 (75-100) mmHg Base Excess (-2.0-2.0) O2 Saturation (94-100) g/dF ABG pH (7.35-7.45) ABG HCO3 (22-28) ABG O2 Sat (Measured) (95-100) % Chip Test A-a Gradient a/A Ratio Hemoglobin Carboxyhemoglobin (0.0-6.9) % THgb Methemoglobin (1.4-1.5) % POC O2 Flow Rate % Sodium (137-145) mmol/L Potassium (3.5-5.1) mmol/L Chloride (98-107) mmol/L Carbon Dioxide (22-30) mmol/L Anion Gap (5-15) MEQ/L BUN (9-20) mg/dL Creatinine (0.66-1.25) mg/dL Estimated GFR ML/MIN Glucose (74-106) mg/dL POC Glucometer 298 H 314 H (74 to 106) mg/dL Lactic Acid (0.4-2.0) Calcium (8.4-10.2) mg/dL Magnesium (1.6-2.3) mg/dL Total Bilirubin (0.2-1.3) mg/dL AST (17-59) U/L ALT (0-50) U/L Alkaline Phosphatase (38-126) U/L Troponin I (0.000-0.034) ng/mL NT-Pro-B Natriuret Pep (0-450) pg/mL Serum Total Protein (6.3-8.2) g/dL Albumin (3.5-5.0) g/dL Amylase (30-110) U/L Lipase (23-300) U/L Urine Color (YELLOW) Urine Appearance (CLEAR) Urine pH (5-6) Ur Specific [place] (1.005-1.025) Urine Protein (Negative) Urine Ketones (NEGATIVE) Urine Blood (0-5) Barry/ul Urine Nitrite (NEGATIVE) Urine Bilirubin (NEGATIVE) Urine Urobilinogen (0-1) mg/dL Ur Leukocyte Esterase (NEGATIVE) Urine WBC (Auto) (0-5) /HPF Urine RBC (Auto) (0-2) /HPF U Epithel Cells (Auto) (FEW) /HPF Urine Bacteria (Auto) (NEGATIVE) /HPF Urine Mucus (Auto) (NEGATIVE) /HPF Urine Culture Reflexed (NO) Urine Glucose (NEGATIVE) mg/dL SARS-CoV-2 (PCR) (NEGATIVE) Accuchecks Date 06/05/21 Date 06/05/21 Date 06/05/21 Time 07:00 Time 05:19 Time 03:45 - Radiology Impressions Radiology Exams & Impressions: Radiology Procedures Category Date Time Status ABDOMEN AND PELVIS W/0 CONTRAS [CT] Stat Exams 06/05/21 01:23 Taken Assessment/Plan (1) DKA (diabetic ketoacidosis) Current Visit: Yes Status: Acute Qualifiers: Diabetes mellitus type: type 2 Diabetes mellitus complication detail: without coma Qualified Code(s): E11.10 - Type 2 diabetes mellitus with ketoacidosis without coma Assessment & Plan: continue IV insulin drip, still has significant volume deficit so will bolus another liter of saline Code(s): E11.10 - TYPE 2 DIABETES MELLITUS WITH KETOACIDOSIS WITHOUT COMA (2) Epigastric abdominal pain Current Visit: Yes Status: Acute Assessment & Plan: likely secondary to DKA, ?colitis on ct scan covering with zosyn but no diarrhea Code(s): R10.13 - EPIGASTRIC PAIN (3) KERI (acute kidney injury) Current Visit: Yes Status: Acute Code(s): N17.9 - ACUTE KIDNEY FAILURE, UNSPECIFIED
[2021-06-05] MEDS: Sodium Chloride 0.9% 1000 ML 1,000 ML IV SCH ×2 (08:39→23:11)
[2021-06-05] MEDS: Hydromorphone 1 mg/ml Injection IV PRN ×3 (08:53→20:08)
[2021-06-05 10:53] LABS: ANION GAP 29.1 MEQ/L (5-15); BLOOD UREA NITROGEN 22 mg/dL (9-20); CHLORIDE 113 mmol/L (98-107); Calcium 8.5 mg/dL (8.4-10.2); Creatinine 1 1.26 mg/dL (0.66-1.25); EST GLOMERULAR FILTRATION RATE > 60.0 ML/MIN; Glucose 126 mg/dL (74-106); Potassium 4.7 mmol/L (3.5-5.1); SODIUM 143 mmol/L (137-145)
[2021-06-05 10:55] LABS: Carbon Dioxide 6 mmol/L (22-30)
[2021-06-05] MEDS: Dextrose 5%/Water IV Soln. 1000 ML 1,000 ML IV SCH ×2 (12:07→18:10)
[2021-06-05] MEDS: Zosyn 3.375 GM Vial 3.375 GM in Sodium Chloride 100ML MINI-BAG PLUS 100 ML IV SCH ×3 (12:07→23:56)
[2021-06-05] MEDS: TYLENOL 325 MG PO PRN (12:14)
--- NOTE | 2021-06-05 13:20 | XRAY ---
Exam: CT of the abdomen and pelvis without IV contrast from 06/05/2021. CTDI: 16.5 mGy Comparison: None. Indication: 46-year-old male with generalized abdominal pain and back pain that began after vomiting multiple times; right flank pain; abnormal blood gases with poorly controlled diabetes mellitus; decreased urine output; history of diabetic ketoacidosis in past. Technique: Non-IV contrast axial images were obtained through the abdomen and pelvis. No oral contrast was given. Reconstructed coronal and sagittal images were created and reviewed. Findings: The lung bases reveals a cyst or bulla measuring about 3.5 cm in diameter at the left lung base. No infiltrates or pleural fluid is seen. Moderate fluid is seen within the stomach lumen. There is an air-fluid level courses across the gastric fundus. The liver and spleen appear of unremarkable size and uniform attenuation. No focal mass or intrahepatic biliary duct distention is seen. The gallbladder is mildly distended and reveals no dense calcifications within it. No extrahepatic biliary duct distention is seen. The pancreas reveals no focal enlargement, pancreatic duct distention, or peripancreatic inflammatory changes. The adrenal glands of normal size and configuration. There is an apparent minimal cortical scar at the lateral margin of the inferior pole of the left kidney on axial images #44 and #45. No gross renal mass, renal calculi, or hydronephrosis is seen. No ureteral stone or ureteral dilation is seen. The kidneys appear of unremarkable size. No abdominal aortic aneurysm is seen. No abnormal retroperitoneal lymphadenopathy is seen. No ventral bowel containing hernia is evident. There is no free intraperitoneal air. Minimal proximal sigmoid colon diverticulosis without evidence of diverticulitis is seen. The colon lumen appears relatively collapsed throughout its course. This is a nonspecific finding, but may correlate with colitis in the appropriate clinical setting. Correlate clinically. Some mild scattered stool is seen within the cecum and ascending colon. The appendix appears unremarkable within the right lower quadrant. The urinary bladder, prostate gland and seminal vesicles appear unremarkable. There are several small calcified phleboliths within the inferior right hemipelvis. I see no other pelvic mass, abnormal pelvic lymphadenopathy, or free intraperitoneal fluid. There is a minimal lower lumbar rotary levoscoliosis centered at L3-L4. I see no acute skeletal fracture or aggressive bone lesion. 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 Within the subtrochanteric region of the proximal left femur, there is some stippled calcification which may relate to a bone infarct or enchondroma. I believe this is incidental. Impression: 1. The majority of the colon appears collapsed which is a nonspecific finding, but can correlate with colitis in the appropriate clinical setting. Correlate clinically. 2. Minimal sigmoid colon diverticulosis without evidence of diverticulitis. A small amount of scattered stool is seen within the cecum and descending colon. The bowel is nonobstructed. The appendix appears unremarkable. 3. A moderate amount of retained fluid is seen within the stomach lumen. 4. Other incidental findings, as discussed above.
[2021-06-05 15:23] LABS: ANION GAP 21.3 MEQ/L (5-15); BLOOD UREA NITROGEN 22 mg/dL (9-20); CHLORIDE 109 mmol/L (98-107); Calcium 8.2 mg/dL (8.4-10.2); EST GLOMERULAR FILTRATION RATE > 60.0 ML/MIN; Glucose 132 mg/dL (74-106); Potassium 4.3 mmol/L (3.5-5.1); SODIUM 136 mmol/L (137-145)
[2021-06-05 15:27] LABS: Carbon Dioxide 10 mmol/L (22-30)
[2021-06-05 19:26] LABS: ANION GAP 19.7 MEQ/L (5-15); BLOOD UREA NITROGEN 20 mg/dL (9-20); CHLORIDE 106 mmol/L (98-107); Calcium 7.8 mg/dL (8.4-10.2); Creatinine 1 1.01 mg/dL (0.66-1.25); EST GLOMERULAR FILTRATION RATE > 60.0 ML/MIN; Glucose 192 mg/dL (74-106); Potassium 4.1 mmol/L (3.5-5.1); SODIUM 132 mmol/L (137-145)
[2021-06-05 19:43] LABS: Carbon Dioxide 11 mmol/L (22-30)
[2021-06-05] MEDS: PROTONIX 40 MG IV IV SCH (21:15)
[2021-06-06 00:03] LABS: ANION GAP 15.6 MEQ/L (5-15); BLOOD UREA NITROGEN 18 mg/dL (9-20); CHLORIDE 105 mmol/L (98-107); Calcium 8.1 mg/dL (8.4-10.2); Creatinine 1 0.99 mg/dL (0.66-1.25); EST GLOMERULAR FILTRATION RATE > 60.0 ML/MIN; Glucose 201 mg/dL (74-106); Potassium 3.6 mmol/L (3.5-5.1); SODIUM 131 mmol/L (137-145)
[2021-06-06 00:05] LABS: Carbon Dioxide 14 mmol/L (22-30)
[2021-06-06] MEDS: Dextrose 5%/Water IV Soln. 1000 ML 1,000 ML IV SCH (00:18)
[2021-06-06 05:49] LABS: ALBUMIN 3.7 g/dL (3.5-5.0); ALKALINE PHOSPHATASE 70 U/L (38-126); ANION GAP 11.9 MEQ/L (5-15); BLOOD UREA NITROGEN 15 mg/dL (9-20); CHLORIDE 104 mmol/L (98-107); Calcium 8.4 mg/dL (8.4-10.2); Carbon Dioxide 19 mmol/L (22-30); Creatinine 1 1.06 mg/dL (0.66-1.25); EST GLOMERULAR FILTRATION RATE > 60.0 ML/MIN; Glucose 159 mg/dL (74-106); Potassium 3.4 mmol/L (3.5-5.1); SGOT/AST 21 U/L (17-59); SGPT/ALT 11 U/L (0-50); SODIUM 131 mmol/L (137-145); Total Protein 6.5 g/dL (6.3-8.2)
[2021-06-06] MEDS ORDERED: K-LYTE 25 MEQ PO ONE (05:57)
[2021-06-06] MEDS ORDERED: Sodium Chloride 0.9% 1000 ML 1,000 ML IV SCH (06:00)
[2021-06-06] MEDS: Zosyn 3.375 GM Vial 3.375 GM in Sodium Chloride 100ML MINI-BAG PLUS 100 ML IV SCH ×3 (06:06→18:04)
[2021-06-06] MEDS: POTASSIUM CHLORIDE 20 mEq IN WATER 100ML 20 MEQ/100 ML BAG IV SCH ×2 (06:06→08:57)
[2021-06-06 06:47] LABS: BASOPHIL % 0.2 % (0.0-0.4); Basophil (Absolute #) 0.02 (0-0.4); Eosinophil % 0.5 % (0.00-5.0); Eosinophil (Absolute #) 0.05 (0-0.5); Hematocrit 41.4 % (42-50); Lymphocyte (Absolute #) 1.32 (1.0-4.6); Lymphocytes % 14.3 % (24.0-44.0); Mean Cell Volume 90.2 fl (78-100); Mean Corpuscular Hemoglobin 30.5 pg (26-32); Mean Corpuscular Hgb Concent. 33.8 g/dl (32-36); Mean Platelet Volume 9.9 fl (7.5-11.0); Monocyte (Absolute #) 1.01 (0.0-1.3); Platelet Count 263 K/mm3 (150-450); Red Blood Count 4.59 M/mm3 (4.1-5.6); Red Cell Distribution Width 12.9 % (11.5-14.0); White Blood Count 9.2 K/mm3 (4.0-10.5)
[2021-06-06 07:50] LABS: ANION GAP 13.1 MEQ/L (5-15); BLOOD UREA NITROGEN 14 mg/dL (9-20); CHLORIDE 105 mmol/L (98-107); Calcium 8.8 mg/dL (8.4-10.2); Carbon Dioxide 18 mmol/L (22-30); Creatinine 1 0.89 mg/dL (0.66-1.25); EST GLOMERULAR FILTRATION RATE > 60.0 ML/MIN; Glucose 128 mg/dL (74-106); Potassium 3.4 mmol/L (3.5-5.1); SODIUM 132 mmol/L (137-145)
--- NOTE | 2021-06-06 10:02 | PCM.NOTE ---
Date and Time: 06/06/2159 Subjective Assessment: patient is doing much better at this time, nausea and vomiting is resolved. Objective Exam General Appearance: no apparent distress, alert Skin Exam: normal color, warm, dry Respiratory Exam: normal breath sounds, lungs clear, No respiratory distress Cardiovascular Exam: regular rate/rhythm, normal heart sounds Gastrointestinal/Abdomen Exam: soft, No tenderness, No mass Extremity Exam: normal inspection, normal range of motion OBJECTIVE DATA Vital Signs: Vital Signs - 24 hr Temp Pulse Resp BP Pulse Ox 06/06/21 08:00 97.0 F 85 20 124/83 99 06/06/21 04:00 98.1 F 84 19 106/70 99 06/06/21 00:01 88 06/06/21 00:00 98.5 F 88 17 108/82 98 06/05/21 21:00 78 16 127/79 97 06/05/21 20:00 91 H 06/05/21 19:00 97.8 F 88 20 123/80 98 06/05/21 18:00 92 H 19 117/84 99 06/05/21 17:00 88 12 131/87 100 06/05/21 16:00 93 H 14 131/91 100 06/05/21 15:00 92 H 15 135/92 100 06/05/21 14:00 101 H 15 125/94 98 06/05/21 13:00 94 H 16 110/80 99 06/05/21 12:00 94 H 16 120/76 100 06/05/21 11:00 121 H 21 133/92 100 06/05/21 10:00 127 H 22 131/95 100 Pain Assessment - Last Documented Pain Intensity 5 Pain Scale Used 0-10 Pain Scale Intake and Output: Intake & Output 06/03/21 06/04/21 06/05/21 06/06/21 11:59 11:59 11:59 11:59 Intake Total 636 3328 Output Total 550 2475 Balance 86 853 Weight 101.1 kg Lab Results: Lab Results-Last 24 Hours 06/05/21 06/05/21 06/05/21 Range/Units 10:20 10:24 10:25 WBC (4.0-10.5) K/mm3 RBC (4.1-5.6) M/mm3 Hgb (12.5-18.0) gm/dl Hct (42-50) % MCV (78-100) fl MCH (26-32) pg MCHC (32-36) g/dl RDW (11.5-14.0) % Plt Count (150-450) K/mm3 MPV (7.5-11.0) fl Gran % (36.0-66.0) % Eos # (Auto) (0-0.5) Absolute Lymphs (auto) (1.0-4.6) Absolute Monos (auto) (0.0-1.3) Lymphocytes % (24.0-44.0) % Monocytes % (0.0-12.0) % Eosinophils % (0.00-5.0) % Basophils % (0.0-0.4) % Absolute Granulocytes (1.4-6.9) Basophils # (0-0.4) Sodium 143 (137-145) mmol/L Potassium 4.7 (3.5-5.1) mmol/L Chloride 113 H (98-107) mmol/L Carbon Dioxide 6 L* (22-30) mmol/L Anion Gap 29.1 H (5-15) MEQ/L BUN 22 H (9-20) mg/dL Creatinine 1.26 H (0.66-1.25) mg/dL Estimated GFR > 60.0 ML/MIN Glucose 126 H (74-106) mg/dL POC Glucometer 154 H (74 to 106) mg/dL Calcium 8.5 (8.4-10.2) mg/dL Total Bilirubin (0.2-1.3) mg/dL AST (17-59) U/L ALT (0-50) U/L Alkaline Phosphatase (38-126) U/L Troponin I < 0.012 (0.000-0.034) ng/mL Serum Total Protein (6.3-8.2) g/dL Albumin (3.5-5.0) g/dL 06/05/21 06/05/21 06/05/21 Range/Units 11:25 12:17 12:56 WBC (4.0-10.5) K/mm3 RBC (4.1-5.6) M/mm3 Hgb (12.5-18.0) gm/dl Hct (42-50) % MCV (78-100) fl MCH (26-32) pg MCHC (32-36) g/dl RDW (11.5-14.0) % Plt Count (150-450) K/mm3 MPV (7.5-11.0) fl Gran % (36.0-66.0) % Eos # (Auto) (0-0.5) Absolute Lymphs (auto) (1.0-4.6) Absolute Monos (auto) (0.0-1.3) Lymphocytes % (24.0-44.0) % Monocytes % (0.0-12.0) % Eosinophils % (0.00-5.0) % Basophils % (0.0-0.4) % Absolute Granulocytes (1.4-6.9) Basophils # (0-0.4) Sodium (137-145) mmol/L Potassium (3.5-5.1) mmol/L Chloride (98-107) mmol/L Carbon Dioxide (22-30) mmol/L Anion Gap (5-15) MEQ/L BUN (9-20) mg/dL Creatinine (0.66-1.25) mg/dL Estimated GFR ML/MIN Glucose (74-106) mg/dL POC Glucometer 101 98 87 (74 to 106) mg/dL Calcium (8.4-10.2) mg/dL Total Bilirubin (0.2-1.3) mg/dL AST (17-59) U/L ALT (0-50) U/L Alkaline Phosphatase (38-126) U/L Troponin I (0.000-0.034) ng/mL Serum Total Protein (6.3-8.2) g/dL Albumin (3.5-5.0) g/dL 06/05/21 06/05/21 06/05/21 Range/Units 13:25 14:16 14:56 WBC (4.0-10.5) K/mm3 RBC (4.1-5.6) M/mm3 Hgb (12.5-18.0) gm/dl Hct (42-50) % MCV (78-100) fl MCH (26-32) pg MCHC (32-36) g/dl RDW (11.5-14.0) % Plt Count (150-450) K/mm3 MPV (7.5-11.0) fl Gran % (36.0-66.0) % Eos # (Auto) (0-0.5) Absolute Lymphs (auto) (1.0-4.6) Absolute Monos (auto) (0.0-1.3) Lymphocytes % (24.0-44.0) % Monocytes % (0.0-12.0) % Eosinophils % (0.00-5.0) % Basophils % (0.0-0.4) % Absolute Granulocytes (1.4-6.9) Basophils # (0-0.4) Sodium 136 L (137-145) mmol/L Potassium 4.3 (3.5-5.1) mmol/L Chloride 109 H (98-107) mmol/L Carbon Dioxide 10 L* (22-30) mmol/L Anion Gap 21.3 H (5-15) MEQ/L BUN 22 H (9-20) mg/dL Creatinine 1.20 (0.66-1.25) mg/dL Estimated GFR > 60.0 ML/MIN Glucose 132 H (74-106) mg/dL POC Glucometer 110 H (74 to 106) mg/dL Calcium 8.2 L (8.4-10.2) mg/dL Total Bilirubin (0.2-1.3) mg/dL AST (17-59) U/L ALT (0-50) U/L Alkaline Phosphatase (38-126) U/L Troponin I < 0.012 (0.000-0.034) ng/mL Serum Total Protein (6.3-8.2) g/dL Albumin (3.5-5.0) g/dL 06/05/21 06/05/21 06/05/21 Range/Units 15:15 16:13 17:16 WBC (4.0-10.5) K/mm3 RBC (4.1-5.6) M/mm3 Hgb (12.5-18.0) gm/dl Hct (42-50) % MCV (78-100) fl MCH (26-32) pg MCHC (32-36) g/dl RDW (11.5-14.0) % Plt Count (150-450) K/mm3 MPV (7.5-11.0) fl Gran % (36.0-66.0) % Eos # (Auto) (0-0.5) Absolute Lymphs (auto) (1.0-4.6) Absolute Monos (auto) (0.0-1.3) Lymphocytes % (24.0-44.0) % Monocytes % (0.0-12.0) % Eosinophils % (0.00-5.0) % Basophils % (0.0-0.4) % Absolute Granulocytes (1.4-6.9) Basophils # (0-0.4) Sodium (137-145) mmol/L Potassium (3.5-5.1) mmol/L Chloride (98-107) mmol/L Carbon Dioxide (22-30) mmol/L Anion Gap (5-15) MEQ/L BUN (9-20) mg/dL Creatinine (0.66-1.25) mg/dL Estimated GFR ML/MIN Glucose (74-106) mg/dL POC Glucometer 122 H 139 H 152 H (74 to 106) mg/dL Calcium (8.4-10.2) mg/dL Total Bilirubin (0.2-1.3) mg/dL AST (17-59) U/L ALT (0-50) U/L Alkaline Phosphatase (38-126) U/L Troponin I (0.000-0.034) ng/mL Serum Total Protein (6.3-8.2) g/dL Albumin (3.5-5.0) g/dL 06/05/21 06/05/21 06/05/21 Range/Units 18:17 19:00 20:01 WBC (4.0-10.5) K/mm3 RBC (4.1-5.6) M/mm3 Hgb (12.5-18.0) gm/dl Hct (42-50) % MCV (78-100) fl MCH (26-32) pg MCHC (32-36) g/dl RDW (11.5-14.0) % Plt Count (150-450) K/mm3 MPV (7.5-11.0) fl Gran % (36.0-66.0) % Eos # (Auto) (0-0.5) Absolute Lymphs (auto) (1.0-4.6) Absolute Monos (auto) (0.0-1.3) Lymphocytes % (24.0-44.0) % Monocytes % (0.0-12.0) % Eosinophils % (0.00-5.0) % Basophils % (0.0-0.4) % Absolute Granulocytes (1.4-6.9) Basophils # (0-0.4) Sodium 132 L (137-145) mmol/L Potassium 4.1 (3.5-5.1) mmol/L Chloride 106 (98-107) mmol/L Carbon Dioxide 11 L* (22-30) mmol/L Anion Gap 19.7 H (5-15) MEQ/L BUN 20 (9-20) mg/dL Creatinine 1.01 (0.66-1.25) mg/dL Estimated GFR > 60.0 ML/MIN Glucose 192 H (74-106) mg/dL POC Glucometer 168 H 208 H (74 to 106) mg/dL Calcium 7.8 L (8.4-10.2) mg/dL Total Bilirubin (0.2-1.3) mg/dL AST (17-59) U/L ALT (0-50) U/L Alkaline Phosphatase (38-126) U/L Troponin I (0.000-0.034) ng/mL Serum Total Protein (6.3-8.2) g/dL Albumin (3.5-5.0) g/dL 06/05/21 06/05/21 06/05/21 Range/Units 21:04 22:00 23:00 WBC (4.0-10.5) K/mm3 RBC (4.1-5.6) M/mm3 Hgb (12.5-18.0) gm/dl Hct (42-50) % MCV (78-100) fl MCH (26-32) pg MCHC (32-36) g/dl RDW (11.5-14.0) % Plt Count (150-450) K/mm3 MPV (7.5-11.0) fl Gran % (36.0-66.0) % Eos # (Auto) (0-0.5) Absolute Lymphs (auto) (1.0-4.6) Absolute Monos (auto) (0.0-1.3) Lymphocytes % (24.0-44.0) % Monocytes % (0.0-12.0) % Eosinophils % (0.00-5.0) % Basophils % (0.0-0.4) % Absolute Granulocytes (1.4-6.9) Basophils # (0-0.4) Sodium 131 L (137-145) mmol/L Potassium 3.6 (3.5-5.1) mmol/L Chloride 105 (98-107) mmol/L Carbon Dioxide 14 L* (22-30) mmol/L Anion Gap 15.6 H (5-15) MEQ/L BUN 18 (9-20) mg/dL Creatinine 0.99 (0.66-1.25) mg/dL Estimated GFR > 60.0 ML/MIN Glucose 201 H (74-106) mg/dL POC Glucometer 238 H 226 H (74 to 106) mg/dL Calcium 8.1 L (8.4-10.2) mg/dL Total Bilirubin (0.2-1.3) mg/dL AST (17-59) U/L ALT (0-50) U/L Alkaline Phosphatase (38-126) U/L Troponin I (0.000-0.034) ng/mL Serum Total Protein (6.3-8.2) g/dL Albumin (3.5-5.0) g/dL 06/05/21 06/05/21 06/06/21 Range/Units 23:05 23:59 00:59 WBC (4.0-10.5) K/mm3 RBC (4.1-5.6) M/mm3 Hgb (12.5-18.0) gm/dl Hct (42-50) % MCV (78-100) fl MCH (26-32) pg MCHC (32-36) g/dl RDW (11.5-14.0) % Plt Count (150-450) K/mm3 MPV (7.5-11.0) fl Gran % (36.0-66.0) % Eos # (Auto) (0-0.5) Absolute Lymphs (auto) (1.0-4.6) Absolute Monos (auto) (0.0-1.3) Lymphocytes % (24.0-44.0) % Monocytes % (0.0-12.0) % Eosinophils % (0.00-5.0) % Basophils % (0.0-0.4) % Absolute Granulocytes (1.4-6.9) Basophils # (0-0.4) Sodium (137-145) mmol/L Potassium (3.5-5.1) mmol/L Chloride (98-107) mmol/L Carbon Dioxide (22-30) mmol/L Anion Gap (5-15) MEQ/L BUN (9-20) mg/dL Creatinine (0.66-1.25) mg/dL Estimated GFR ML/MIN Glucose (74-106) mg/dL POC Glucometer 207 H 200 H 164 H (74 to 106) mg/dL Calcium (8.4-10.2) mg/dL Total Bilirubin (0.2-1.3) mg/dL AST (17-59) U/L ALT (0-50) U/L Alkaline Phosphatase (38-126) U/L Troponin I (0.000-0.034) ng/mL Serum Total Protein (6.3-8.2) g/dL Albumin (3.5-5.0) g/dL 06/06/21 06/06/21 06/06/21 Range/Units 01:58 03:02 04:01 WBC (4.0-10.5) K/mm3 RBC (4.1-5.6) M/mm3 Hgb (12.5-18.0) gm/dl Hct (42-50) % MCV (78-100) fl MCH (26-32) pg MCHC (32-36) g/dl RDW (11.5-14.0) % Plt Count (150-450) K/mm3 MPV (7.5-11.0) fl Gran % (36.0-66.0) % Eos # (Auto) (0-0.5) Absolute Lymphs (auto) (1.0-4.6) Absolute Monos (auto) (0.0-1.3) Lymphocytes % (24.0-44.0) % Monocytes % (0.0-12.0) % Eosinophils % (0.00-5.0) % Basophils % (0.0-0.4) % Absolute Granulocytes (1.4-6.9) Basophils # (0-0.4) Sodium (137-145) mmol/L Potassium (3.5-5.1) mmol/L Chloride (98-107) mmol/L Carbon Dioxide (22-30) mmol/L Anion Gap (5-15) MEQ/L BUN (9-20) mg/dL Creatinine (0.66-1.25) mg/dL Estimated GFR ML/MIN Glucose (74-106) mg/dL POC Glucometer 188 H 182 H 164 H (74 to 106) mg/dL Calcium (8.4-10.2) mg/dL Total Bilirubin (0.2-1.3) mg/dL AST (17-59) U/L ALT (0-50) U/L Alkaline Phosphatase (38-126) U/L Troponin I (0.000-0.034) ng/mL Serum Total Protein (6.3-8.2) g/dL Albumin (3.5-5.0) g/dL 06/06/21 06/06/21 06/06/21 Range/Units 04:25 04:25 05:04 WBC 9.2 (4.0-10.5) K/mm3 RBC 4.59 (4.1-5.6) M/mm3 Hgb 14.0 (12.5-18.0) gm/dl Hct 41.4 L (42-50) % MCV 90.2 (78-100) fl MCH 30.5 (26-32) pg MCHC 33.8 (32-36) g/dl RDW 12.9 (11.5-14.0) % Plt Count 263 D (150-450) K/mm3 MPV 9.9 (7.5-11.0) fl Gran % 74.0 H (36.0-66.0) % Eos # (Auto) 0.05 (0-0.5) Absolute Lymphs (auto) 1.32 (1.0-4.6) Absolute Monos (auto) 1.01 (0.0-1.3) Lymphocytes % 14.3 L (24.0-44.0) % Monocytes % 11.0 (0.0-12.0) % Eosinophils % 0.5 (0.00-5.0) % Basophils % 0.2 (0.0-0.4) % Absolute Granulocytes 6.80 (1.4-6.9) Basophils # 0.02 (0-0.4) Sodium 131 L (137-145) mmol/L Potassium 3.4 L (3.5-5.1) mmol/L Chloride 104 (98-107) mmol/L Carbon Dioxide 19 L (22-30) mmol/L Anion Gap 11.9 (5-15) MEQ/L BUN 15 (9-20) mg/dL Creatinine 1.06 (0.66-1.25) mg/dL Estimated GFR > 60.0 ML/MIN Glucose 159 H (74-106) mg/dL POC Glucometer 150 H (74 to 106) mg/dL Calcium 8.4 (8.4-10.2) mg/dL Total Bilirubin 0.60 (0.2-1.3) mg/dL AST 21 (17-59) U/L ALT 11 (0-50) U/L Alkaline Phosphatase 70 (38-126) U/L Troponin I (0.000-0.034) ng/mL Serum Total Protein 6.5 (6.3-8.2) g/dL Albumin 3.7 (3.5-5.0) g/dL 06/06/21 06/06/21 06/06/21 Range/Units 06:08 07:00 07:02 WBC (4.0-10.5) K/mm3 RBC (4.1-5.6) M/mm3 Hgb (12.5-18.0) gm/dl Hct (42-50) % MCV (78-100) fl MCH (26-32) pg MCHC (32-36) g/dl RDW (11.5-14.0) % Plt Count (150-450) K/mm3 MPV (7.5-11.0) fl Gran % (36.0-66.0) % Eos # (Auto) (0-0.5) Absolute Lymphs (auto) (1.0-4.6) Absolute Monos (auto) (0.0-1.3) Lymphocytes % (24.0-44.0) % Monocytes % (0.0-12.0) % Eosinophils % (0.00-5.0) % Basophils % (0.0-0.4) % Absolute Granulocytes (1.4-6.9) Basophils # (0-0.4) Sodium 132 L (137-145) mmol/L Potassium 3.4 L (3.5-5.1) mmol/L Chloride 105 (98-107) mmol/L Carbon Dioxide 18 L (22-30) mmol/L Anion Gap 13.1 (5-15) MEQ/L BUN 14 (9-20) mg/dL Creatinine 0.89 (0.66-1.25) mg/dL Estimated GFR > 60.0 ML/MIN Glucose 128 H (74-106) mg/dL POC Glucometer 129 H 116 H (74 to 106) mg/dL Calcium 8.8 (8.4-10.2) mg/dL Total Bilirubin (0.2-1.3) mg/dL AST (17-59) U/L ALT (0-50) U/L Alkaline Phosphatase (38-126) U/L Troponin I (0.000-0.034) ng/mL Serum Total Protein (6.3-8.2) g/dL Albumin (3.5-5.0) g/dL 06/06/21 06/06/21 06/06/21 Range/Units 08:09 09:18 09:55 WBC (4.0-10.5) K/mm3 RBC (4.1-5.6) M/mm3 Hgb (12.5-18.0) gm/dl Hct (42-50) % MCV (78-100) fl MCH (26-32) pg MCHC (32-36) g/dl RDW (11.5-14.0) % Plt Count (150-450) K/mm3 MPV (7.5-11.0) fl Gran % (36.0-66.0) % Eos # (Auto) (0-0.5) Absolute Lymphs (auto) (1.0-4.6) Absolute Monos (auto) (0.0-1.3) Lymphocytes % (24.0-44.0) % Monocytes % (0.0-12.0) % Eosinophils % (0.00-5.0) % Basophils % (0.0-0.4) % Absolute Granulocytes (1.4-6.9) Basophils # (0-0.4) Sodium (137-145) mmol/L Potassium (3.5-5.1) mmol/L Chloride (98-107) mmol/L Carbon Dioxide (22-30) mmol/L Anion Gap (5-15) MEQ/L BUN (9-20) mg/dL Creatinine (0.66-1.25) mg/dL Estimated GFR ML/MIN Glucose (74-106) mg/dL POC Glucometer 112 H 136 H 132 H (74 to 106) mg/dL Calcium (8.4-10.2) mg/dL Total Bilirubin (0.2-1.3) mg/dL AST (17-59) U/L ALT (0-50) U/L Alkaline Phosphatase (38-126) U/L Troponin I (0.000-0.034) ng/mL Serum Total Protein (6.3-8.2) g/dL Albumin (3.5-5.0) g/dL Radiology Exams: Radiology Procedures Category Date Time Status ABDOMEN AND PELVIS W/0 CONTRAS [CT] Stat Exams 06/05/21 01:23 Completed Assessment/Plan (1) DKA (diabetic ketoacidosis) Current Visit: Yes Status: Acute Qualifiers: Diabetes mellitus type: type 2 Diabetes mellitus complication detail: without coma Qualified Code(s): E11.10 - Type 2 diabetes mellitus with ketoacidosis without coma Assessment & Plan: resolved, gap closed. will d/c drip and start on lantus 30 units daily with humalog 10 U AC with SSI Code(s): E11.10 - TYPE 2 DIABETES MELLITUS WITH KETOACIDOSIS WITHOUT COMA (2) Epigastric abdominal pain Current Visit: Yes Status: Acute Code(s): R10.13 - EPIGASTRIC PAIN (3) KERI (acute kidney injury) Current Visit: Yes Status: Acute Code(s): N17.9 - ACUTE KIDNEY FAILURE, UNSPECIFIED
[2021-06-06] MEDS: Sodium Chloride 0.9% W/ 20 mEq KCl/LITER 1,000 ML IV SCH ×2 (10:19→20:32)
[2021-06-06] MEDS: Lantus Insulin SQ SCH (10:20)
[2021-06-06] MEDS: HUMALOG SQ SCH ×2 (11:44→16:25)
[2021-06-06] MEDS: HUMALOG SQ PRN ×5 (14:00→22:20)
[2021-06-06] MEDS: TYLENOL 325 MG PO PRN ×2 (16:25→20:31)
[2021-06-06] MEDS: HUMULIN R 100 UNIT in Sodium Chloride 0.9% 100 ML BAG 100 ML IV SCH (19:35)
[2021-06-06] MEDS: Sodium Chloride 0.9% 1000 ML 1,000 ML IV SCH ×2 (19:36→19:49)
[2021-06-06] MEDS: PROTONIX 40 MG IV IV SCH (21:53)
[2021-06-07] MEDS: Zosyn 3.375 GM Vial 3.375 GM in Sodium Chloride 100ML MINI-BAG PLUS 100 ML IV SCH ×2 (00:16→06:09)
[2021-06-07] MEDS: TYLENOL 325 MG PO PRN (00:17)
[2021-06-07] MEDS: HUMALOG SQ PRN ×4 (00:20→08:07)
[2021-06-07 06:00] LABS: Absolute Neutrophil Ct (ANC) 2.83 (1.4-6.9); BASOPHIL % 0.4 % (0.0-0.4); Basophil (Absolute #) 0.02 (0-0.4); Eosinophil % 1.1 % (0.00-5.0); Eosinophil (Absolute #) 0.06 (0-0.5); Hematocrit 36.5 % (42-50); Hemoglobin 12.4 gm/dl (12.5-18.0); Lymphocytes % 36.6 % (24.0-44.0); Mean Cell Volume 89.9 fl (78-100); Mean Corpuscular Hemoglobin 30.5 pg (26-32); Mean Platelet Volume 10.6 fl (7.5-11.0); Monocyte (Absolute #) 0.56 (0.0-1.3); Monocytes % 10.2 % (0.0-12.0); Neutrophil % 51.7 % (36.0-66.0); Platelet Count 238 K/mm3 (150-450); Red Blood Count 4.06 M/mm3 (4.1-5.6); Red Cell Distribution Width 12.9 % (11.5-14.0); White Blood Count 5.5 K/mm3 (4.0-10.5)
[2021-06-07] MEDS: Sodium Chloride 0.9% W/ 20 mEq KCl/LITER 1,000 ML IV SCH (06:07)
[2021-06-07 06:13] LABS: BLOOD UREA NITROGEN 11 mg/dL (9-20); CHLORIDE 109 mmol/L (98-107); Calcium 8.1 mg/dL (8.4-10.2); Carbon Dioxide 22 mmol/L (22-30); EST GLOMERULAR FILTRATION RATE > 60.0 ML/MIN; Glucose 173 mg/dL (74-106); Potassium 3.3 mmol/L (3.5-5.1); SODIUM 138 mmol/L (137-145)
[2021-06-07 08:05] VITALS: BP 125/90; PULSE 83
[2021-06-07] MEDS: HUMALOG SQ SCH (08:07)
[2021-06-07] MEDS: Lantus Insulin SQ SCH (09:27)
--- NOTE | 2021-06-07 09:29 | PCM.DS ---
Discharge Summary Date of Admission: 06/05/21 06:06 Admitting Physician: DEE DEE REED Primary Care Provider: DEE DEE REED Allergies Allergies No Known Drug Allergies Allergy (Unverified 06/05/21 01:23) Hospital Summary - Hospital Course Hospital Course: patient was admitted as a service patient with severe DKA, bicar 2 on arrival and ph 6.98, improved with fluids and insulin drip. recently started on injectable weekly GLP-1 agonist and had ran out of insulin that he had been self medicating without a doctor's care. his a1c was over 12% on arrival so clearly needs to be on insulin and has been very reasonably managed on basal/bolus insulin during his stay after transitioning off of the insulin drip. - Vitals & Intake/Output Vital Signs: Vital Signs Temperature 97.1 F 06/07/21 07:58 Pulse Rate 83 06/07/21 07:58 Respiratory Rate 16 06/07/21 07:58 Blood Pressure 125/90 06/07/21 07:58 O2 Sat by Pulse Oximetry 97 06/07/21 07:58 Intake & Output: Intake & Output 06/04/21 06/05/21 06/06/21 06/07/21 11:59 11:59 11:59 11:59 Intake Total 636 3328 3126 Output Total 550 3025 Balance 86 303 3126 Weight 101.1 kg 107.1 kg - Lab Result Diagrams: 06/07/21 04:52 06/07/21 04:52 Lab Results-Last 24 Hrs: Lab Results-Last 24 Hours 06/06/21 06/06/21 06/06/21 Range/Units 09:55 11:31 13:05 WBC (4.0-10.5) K/mm3 RBC (4.1-5.6) M/mm3 Hgb (12.5-18.0) gm/dl Hct (42-50) % MCV (78-100) fl MCH (26-32) pg MCHC (32-36) g/dl RDW (11.5-14.0) % Plt Count (150-450) K/mm3 MPV (7.5-11.0) fl Gran % (36.0-66.0) % Eos # (Auto) (0-0.5) Absolute Lymphs (auto) (1.0-4.6) Absolute Monos (auto) (0.0-1.3) Lymphocytes % (24.0-44.0) % Monocytes % (0.0-12.0) % Eosinophils % (0.00-5.0) % Basophils % (0.0-0.4) % Absolute Granulocytes (1.4-6.9) Basophils # (0-0.4) Sodium (137-145) mmol/L Potassium 3.4 L (3.5-5.1) mmol/L Chloride (98-107) mmol/L Carbon Dioxide (22-30) mmol/L Anion Gap (5-15) MEQ/L BUN (9-20) mg/dL Creatinine (0.66-1.25) mg/dL Estimated GFR ML/MIN Glucose (74-106) mg/dL POC Glucometer 132 H 150 H (74 to 106) mg/dL Calcium (8.4-10.2) mg/dL Magnesium (1.6-2.3) mg/dL 06/06/21 06/06/21 06/06/21 Range/Units 13:57 16:20 17:53 WBC (4.0-10.5) K/mm3 RBC (4.1-5.6) M/mm3 Hgb (12.5-18.0) gm/dl Hct (42-50) % MCV (78-100) fl MCH (26-32) pg MCHC (32-36) g/dl RDW (11.5-14.0) % Plt Count (150-450) K/mm3 MPV (7.5-11.0) fl Gran % (36.0-66.0) % Eos # (Auto) (0-0.5) Absolute Lymphs (auto) (1.0-4.6) Absolute Monos (auto) (0.0-1.3) Lymphocytes % (24.0-44.0) % Monocytes % (0.0-12.0) % Eosinophils % (0.00-5.0) % Basophils % (0.0-0.4) % Absolute Granulocytes (1.4-6.9) Basophils # (0-0.4) Sodium (137-145) mmol/L Potassium (3.5-5.1) mmol/L Chloride (98-107) mmol/L Carbon Dioxide (22-30) mmol/L Anion Gap (5-15) MEQ/L BUN (9-20) mg/dL Creatinine (0.66-1.25) mg/dL Estimated GFR ML/MIN Glucose (74-106) mg/dL POC Glucometer 253 H 232 H 227 H (74 to 106) mg/dL Calcium (8.4-10.2) mg/dL Magnesium (1.6-2.3) mg/dL 06/06/21 06/06/21 06/07/21 Range/Units 20:00 22:09 00:10 WBC (4.0-10.5) K/mm3 RBC (4.1-5.6) M/mm3 Hgb (12.5-18.0) gm/dl Hct (42-50) % MCV (78-100) fl MCH (26-32) pg MCHC (32-36) g/dl RDW (11.5-14.0) % Plt Count (150-450) K/mm3 MPV (7.5-11.0) fl Gran % (36.0-66.0) % Eos # (Auto) (0-0.5) Absolute Lymphs (auto) (1.0-4.6) Absolute Monos (auto) (0.0-1.3) Lymphocytes % (24.0-44.0) % Monocytes % (0.0-12.0) % Eosinophils % (0.00-5.0) % Basophils % (0.0-0.4) % Absolute Granulocytes (1.4-6.9) Basophils # (0-0.4) Sodium (137-145) mmol/L Potassium (3.5-5.1) mmol/L Chloride (98-107) mmol/L Carbon Dioxide (22-30) mmol/L Anion Gap (5-15) MEQ/L BUN (9-20) mg/dL Creatinine (0.66-1.25) mg/dL Estimated GFR ML/MIN Glucose (74-106) mg/dL POC Glucometer 201 H 191 H 189 H (74 to 106) mg/dL Calcium (8.4-10.2) mg/dL Magnesium (1.6-2.3) mg/dL 06/07/21 06/07/21 06/07/21 Range/Units 02:15 04:30 04:52 WBC 5.5 (4.0-10.5) K/mm3 RBC 4.06 L (4.1-5.6) M/mm3 Hgb 12.4 L (12.5-18.0) gm/dl Hct 36.5 L (42-50) % MCV 89.9 (78-100) fl MCH 30.5 (26-32) pg MCHC 34.0 (32-36) g/dl RDW 12.9 (11.5-14.0) % Plt Count 238 (150-450) K/mm3 MPV 10.6 (7.5-11.0) fl Gran % 51.7 (36.0-66.0) % Eos # (Auto) 0.06 (0-0.5) Absolute Lymphs (auto) 2.00 (1.0-4.6) Absolute Monos (auto) 0.56 (0.0-1.3) Lymphocytes % 36.6 (24.0-44.0) % Monocytes % 10.2 (0.0-12.0) % Eosinophils % 1.1 (0.00-5.0) % Basophils % 0.4 (0.0-0.4) % Absolute Granulocytes 2.83 (1.4-6.9) Basophils # 0.02 (0-0.4) Sodium (137-145) mmol/L Potassium (3.5-5.1) mmol/L Chloride (98-107) mmol/L Carbon Dioxide (22-30) mmol/L Anion Gap (5-15) MEQ/L BUN (9-20) mg/dL Creatinine (0.66-1.25) mg/dL Estimated GFR ML/MIN Glucose (74-106) mg/dL POC Glucometer 181 H 167 H (74 to 106) mg/dL Calcium (8.4-10.2) mg/dL Magnesium (1.6-2.3) mg/dL 06/07/21 06/07/21 06/07/21 Range/Units 04:52 06:37 08:03 WBC (4.0-10.5) K/mm3 RBC (4.1-5.6) M/mm3 Hgb (12.5-18.0) gm/dl Hct (42-50) % MCV (78-100) fl MCH (26-32) pg MCHC (32-36) g/dl RDW (11.5-14.0) % Plt Count (150-450) K/mm3 MPV (7.5-11.0) fl Gran % (36.0-66.0) % Eos # (Auto) (0-0.5) Absolute Lymphs (auto) (1.0-4.6) Absolute Monos (auto) (0.0-1.3) Lymphocytes % (24.0-44.0) % Monocytes % (0.0-12.0) % Eosinophils % (0.00-5.0) % Basophils % (0.0-0.4) % Absolute Granulocytes (1.4-6.9) Basophils # (0-0.4) Sodium 138 (137-145) mmol/L Potassium 3.3 L (3.5-5.1) mmol/L Chloride 109 H (98-107) mmol/L Carbon Dioxide 22 (22-30) mmol/L Anion Gap 10.0 (5-15) MEQ/L BUN 11 (9-20) mg/dL Creatinine 0.80 (0.66-1.25) mg/dL Estimated GFR > 60.0 ML/MIN Glucose 173 H (74-106) mg/dL POC Glucometer 132 H 157 H (74 to 106) mg/dL Calcium 8.1 L (8.4-10.2) mg/dL Magnesium 2.0 (1.6-2.3) mg/dL Micro Results-Entire Visit: Microbiology 06/05/21 01:50 Blood Culture - Preliminary Blood NO GROWTH TO DATE 06/05/21 01:26 Blood Culture - Preliminary Blood NO GROWTH TO DATE 06/05/21 02:45 Urine Culture - Final Urine, Void NO GROWTH Accuchecks Date 06/07/21 Date 06/07/21 Date 06/07/21 Date 06/06/21 Date 06/06/21 Date 06/06/21 Date 06/06/21 Date 06/06/21 Date 06/06/21 Date 06/06/21 Date 06/06/21 Time 08:03 Time 04:33 Time 22:25 Time 22:25 Time 22:25 Time 18:00 Time 18:00 Time 16:00 Time 14:00 Discharge Exam General Appearance: no apparent distress, alert Neurologic Exam: alert, oriented x 3, cooperative Respiratory Exam: normal breath sounds, lungs clear, No respiratory distress Cardiovascular Exam: regular rate/rhythm, normal heart sounds Gastrointestinal/Abdomen Exam: soft, No tenderness, No mass Extremity Exam: normal inspection, normal range of motion Skin Exam: normal color, warm, dry Final Diagnosis/Problem List - Final Discharge Diagnosis/Problem (1) DKA (diabetic ketoacidosis) Current Visit: Yes Status: Acute Assessment & Plan: resolved, home on basal/bolus therapy. advised to track blood sugars tid and bring log to review to office in a week. Code(s): E11.10 - TYPE 2 DIABETES MELLITUS WITH KETOACIDOSIS WITHOUT COMA (2) KERI (acute kidney injury) Current Visit: Yes Status: Acute Assessment & Plan: resolved with hydration and correction of DKA Code(s): N17.9 - ACUTE KIDNEY FAILURE, UNSPECIFIED (3) Epigastric abdominal pain Current Visit: Yes Status: Acute Assessment & Plan: resolved, secondary to vomiting and severe DKA Code(s): R10.13 - EPIGASTRIC PAIN - Discharge Disposition: Home, Self-Care Condition: Good Prescriptions: New Insulin Glargine,Hum.rec.anlog [Basaglar Kwikpen U-100] 30 unit SQ DAILY #3 packet Pen Needle, Diabetic [Bd Ultra-Fine Pen Needle] 1 each SQ QID #200 packet Insulin Aspart [Novolog] 12 unit SQ TID #4 packet Follow up with: DEE DEE REED MD [Primary Care Provider] - 1 Week
[2021-06-09 19:39] VITALS: O2SAT 98
== END 2021-06-07 11:25 | disposition home or self-care (01) | DRG 638 ==
LOC: ED 00:47 → ICU 06:06 → MED SURG 06-06 11:08
PROVIDERS: ADMIT Family Medicine; ATTEND Family Medicine
DX: E11.10 Type 2 diabetes mellitus with ketoacidosis without coma (principal); N17.9 Acute kidney failure, unspecified; R10.13 Epigastric pain; R11.2 Nausea with vomiting, unspecified; R53.1 Weakness; R53.83 Other fatigue; Z79.899 Other long term (current) drug therapy; Z20.822 Contact with and (suspected) exposure to COVID-19
CPT/HCPCS: 36000; 36415; 36600; 74176; 80048; 80053; 81001; 82150; 82375; 82803; 82947; 83036; 83605; 83690; 83735; 83880; 84132; 84484; 85025; 87040; 87086; 96360; 96365; 96372; 96374; 96375; 96376; 99285; 99291; J1170; J1815; J1817; J2270; J2405; J3480; U0003; A9270-GY